=== PATIENT | female | born 1945 | race Caucasian/White ===

== ENCOUNTER 2016-10-07 10:26 | Inpatient (IN) | payer MEDICARE, OTHER ==
[2016-10-07] MEDS ORDERED: SODIUM CHLORIDE 1,000 ML IV STA (11:03)
[2016-10-07] MEDS ORDERED: methylPREDNISolone NA SUCC 125 MG/2 ML VIAL IVPB ONE (11:04)
[2016-10-07] MEDS ORDERED: ACETAMINOPHEN 325 MG TABLET (FP) PO ONE (11:05)
[2016-10-07] MEDS ORDERED: ALBUTEROL SO4 2.5/IPRATROPIUM 0.5 INH SOL 3 ML VIAL.NEB. NEB ONE ×2 (11:08→11:50)
[2016-10-07 11:11] LABS: BASOPHIL 0.4 % (0-2.0); EOSINOPHIL 0.5 % (0-4.5); MCH 28.9 pg (25.7-33.7); MCHC 32.3 g/dl (32.0-36.0); MEAN CELL VOLUME 89.3 fl (80-96); MEAN PLT VOLUME 8.9 fl (7.5-11.1); NEUTROPHILS 77.6 % (42.8-82.8); PLATELET COUNT 238 K/MM3 (134-434); RDW 14.7 % (11.6-15.6); WHITE BLOOD COUNT 8.2 K/mm3 (4.0-10.0)
--- NOTE | 2016-10-07 11:14 | PDOC ---
History of Present Illness <Michelle Woods - Last Filed: 10/07/16 12:20> - General History Source: Patient Exam Limitations: No Limitations - History of Present Illness Initial Comments: 10/07/16 11:08 71-year-old female presents to the ED with complaints of fever, chills, bodyaches, cough, wheezing, mid back pain, and intermittent diarrhea for the past 2 days. Patient states has been getting progressively worse including weakness and today on her way to the bathroom she states became dizzy and her knees buckled causing her to land on her buttocks. Patient states felt too weak to pull herself up so called her friend who called then EMS and brought her to the ER for further evaluation. Patient states was on the floor approximately 20 minutes until EMS came. Patient states did not hit her head have LOC or complaints of chest pain. Timing/Duration: reports: getting worse Severity: reports: moderate Possible Cause: Yes: no prior episodes Modifying Factors: improves with: albuterol inhaler Associated Symptoms: reports: cough, dizziness, fever/chills, muscle aches, wheezing <Shannon Harrison - Last Filed: 10/07/16 15:59> - General Chief Complaint: Diarrhea Stated Complaint: FALL Time Seen by Provider: 10/07/16 10:56 Past History <Michelle Woods - Last Filed: 10/07/16 12:20> - Past Medical History Asthma: Yes Cardiac Disorders: Yes Diabetes: Yes HTN: Yes Hypercholesterolemia: Yes - Surgical History Abdominal Surgery: Yes (tubal ligation) - Immunization History Immunization Up to Date: Yes - Psycho/Social/Smoking Cessation Hx Anxiety: No Suicidal Ideation: No Smoking Status: No Smoking History: Unknown if ever smoked Have you smoked in the past 12 months: No Number of Cigarettes Smoked Daily: 0 Hx Alcohol Use: No Drug/Substance Use Hx: No Substance Use Type: None Patient Lives Alone: No <Shannon Harrison - Last Filed: 10/07/16 15:59> - Past Medical History Allergies/Adverse Reactions: Allergies Allergy/AdvReac Type Severity Reaction Status Date / Time No Known Allergies Allergy Verified 04/07/16 15:07 Home Medications: Ambulatory Orders Calcium Carbonate/Vitamin D3 [Calcium 500-Vit D3 200 Caplet] 1 tab PO DAILY Montelukast Na [Singulair -] 10 mg PO HS 05/22/12 Pravastatin Sodium [Pravachol -] 20 mg PO HS 05/22/12 Docusate Sodium [Colace -] 300 mg PO DAILY PRN 12/02/12 Glimepiride [Amaryl -] 4 mg PO DAILY@0700 12/02/12 Amlodipine Besylate [Norvasc -] 10 mg PO DAILY #0 tablet 12/13/12 Metoprolol Succinate [Toprol XL -] 25 mg PO BID #0 tab.sr.24h 12/13/12 Aspirin [ASA -] 81 mg PO DAILY 01/25/16 Budesonide/Formeterol Fumarate [SYMBICORT 160/4.5mcg -] 3 inh PO BID 01/25/16 Furosemide [Lasix -] 20 mg PO DAILY 01/25/16 Bacitracin - [Bacitracin Topical Ointment -] 1 applic TP DAILY tube 01/28/16 Cephalexin Monohydrate [Keflex -] 500 mg PO BID #14 capsule 01/28/16 Enoxaparin [Lovenox -] 40 mg SQ DAILY disp.syrin 01/28/16 Gabapentin [Neurontin -] 100 mg PO TID capsule 01/28/16 Insulin Sliding Scale [Novolog Vial Sliding Scale -] 1 vial SQ ACHS units 01/27 Lisinopril [Prinivil] 5 mg PO DAILY tablet 01/28/16 Nystatin Cream [Mycostatin Cream -] 1 applic TP DAILY applic 01/28/16 Pantoprazole Sodium [Protonix -] 40 mg PO DAILY tablet.ec 01/28/16 Insulin (Levemir) [Levemir Vial] 10 units SQ HS ml 01/31/16 Insulin (Levemir) [Levemir Vial] 35 units SQ AM ml 01/31/16 Cyclobenzaprine HCl [Flexeril -] 10 mg PO TID #15 tablet 04/07/16 Respiratory Specific PMHX - Complaint Specific PMHX Angina: No <Shannon Harrison - Last Filed: 10/07/16 15:59> Review of Systems - Review of Systems Able to Perform ROS?: Yes Constitutional: Yes: Chills, Fever, Weakness HEENTM: No: Symptoms Reported Respiratory: Yes: Cough, Wheezing Cardiac (ROS): Yes: Lightheadedness ABD/GI: No: Symptoms Reported : No: Symptoms Reported Musculoskeletal: Yes: Back Pain (mid back) Integumentary: No: Symptoms Reported Neurological: Yes: Dizziness. No: Headache Hematologic/Lymphatic: No: Symptoms Reported <Shannon Harrison - Last Filed: 10/07/16 15:59> *Physical Exam - Vital Signs Last Vital Signs Temp Pulse Resp BP Pulse Ox 102.0 F H 124 H 25 H 146/84 100 10/07/16 11:18 10/07/16 11:18 10/07/16 11:18 10/07/16 10:41 10/07/16 11:18 <Michelle Woods - Last Filed: 10/07/16 12:20> - Vital Signs Last Vital Signs Temp Pulse Resp BP Pulse Ox 99.2 F 122 H 24 146/84 96 10/07/16 10:41 10/07/16 10:41 10/07/16 10:41 10/07/16 10:41 10/07/16 10:41 - Physical Exam General Appearance: Yes: Nourished, Appropriately Dressed. No: Apparent Distress HEENT: positive: EOMI, FRANCI, TMs Normal, Pharynx Normal. negative: Pale Conjunctivae Neck: positive: Supple Respiratory/Chest: positive: Wheezing (expiratory greater on right) Cardiovascular: positive: Regular Rhythm, Tachycardia. negative: Murmur Gastrointestinal/Abdominal: positive: Soft. negative: Tenderness Musculoskeletal: positive: Other (bilateral thoracic tenderness alond the parispinous muscles from t7-t12). negative: Vertebral Tenderness Extremity: positive: Normal Capillary Refill. negative: Pedal Edema Integumentary: positive: Normal Color, Warm, Moist Neurologic: positive: Motor Strength 5/5 (moving all extremeties actively) <Shannon Harrison - Last Filed: 10/07/16 15:59> ED Treatment Course - LABORATORY CBC & Chemistry Diagram: 10/07/16 11:00 10/07/16 11:00 - ADDITIONAL ORDERS Additional order review: Laboratory Results 10/07/16 10/07/16 10/07/16 11:00 11:00 11:00 INR 1.05 Sodium 143 Potassium 4.3 Chloride 103 Carbon Dioxide 31 Anion Gap 9 BUN 16 D Creatinine 1.1 H D Creat Clearance w eGFR 48.96 Random Glucose 279 H D Lactic Acid 1.5 Calcium 8.9 Total Bilirubin 0.3 AST 35 D ALT 29 D Alkaline Phosphatase 160 H D Creatine Kinase 592 H D CK-MB (CK-2) 2.385 Troponin I 0.02 Total Protein 7.3 Albumin 3.0 L Lipase 92 10/07/16 11:00 RBC 4.35 MCV 89.3 MCHC 32.3 RDW 14.7 MPV 8.9 Neutrophils % 77.6 D Lymphocytes % 12.1 D Monocytes % 9.4 Eosinophils % 0.5 Basophils % 0.4 - RADIOLOGY Radiology Studies Ordered: Category Date Time Status CHEST X-RAY PORTABLE* [RAD] Stat Radiology 10/07/16 11:00 Completed - Medications Given in the ED: ED Medications Discontinued Medications Generic Name Dose Route Start Last Admin Trade Name Dhaval PRN Reason Stop Dose Admin Acetaminophen 650 mg 10/07/16 11:05 10/07/16 11:25 Tylenol - PO 10/07/16 11:06 650 mg ONCE ONE Administration Albuterol/Ipratropium 1 amp 10/07/16 11:15 10/07/16 11:54 Duoneb - NEB 10/07/16 12:01 1 amp Q15M GERARDO Administration Sodium Chloride 1,000 mls @ 1,000 mls/hr 10/07/16 11:03 10/07/16 11:25 Normal Saline - IV 10/07/16 12:02 1,000 mls/hr ASDIR STA Administration Methylprednisolone Sodium Succinate 125 mg 10/07/16 11:04 10/07/16 11:32 Solu-Medrol - IVPB 10/07/16 11:05 125 mg ONCE ONE Administration <Michelle Woods - Last Filed: 10/07/16 12:20> - LABORATORY CBC & Chemistry Diagram: 10/07/16 11:00 10/07/16 11:00 <Shannon Harrison - Last Filed: 10/07/16 15:59> Medical Decision Making - Medical Decision Making 10/07/16 11:16 Patient with worsening symptoms of fever, chills, myalgia, weakness, cough and wheezing. Patient also states intermittent diarrhea but denies change in appetite. Patient concerning for sepsis secondary to warm to touch, oral temperature of 99.2, and tachycardia. Septic workup initiated along with DuoNeb and Solu-Medrol. 10/07/16 11:35 Rectal temp 102.0. Called placed to Dr. Mirza shortly 10/07/16 12:36 Laboratory Tests 10/07/16 10/07/16 10/07/16 11:00 11:00 11:00 WBC 8.2 Hgb 12.6 Hct 38.9 Neutrophils % 77.6 D INR 1.05 Sodium 143 Potassium 4.3 Chloride 103 Carbon Dioxide 31 Anion Gap 9 BUN 16 D Creatinine 1.1 H D Creat Clearance w eGFR 48.96 Random Glucose 279 H D Lactic Acid Calcium 8.9 Total Bilirubin 0.3 AST 35 D ALT 29 D Alkaline Phosphatase 160 H D Creatine Kinase 592 H D CK-MB (CK-2) 2.385 Troponin I 0.02 Lipase 92 10/07/16 11:00 WBC Hgb Hct Neutrophils % INR Sodium Potassium Chloride Carbon Dioxide Anion Gap BUN Creatinine Creat Clearance w eGFR Random Glucose Lactic Acid 1.5 Calcium Total Bilirubin AST ALT Alkaline Phosphatase Creatine Kinase CK-MB (CK-2) Troponin I Lipase Patient ordered for second IV fluid bolus of 500 mL after receiving the 1 L. Case discussed with Dr. Mirza patient's PCP and agrees patient should be admitted to [facility] with consultation to Dr. Walls. Urine specimen pending. Chest x-ray otherwise unremarkable. 10/07/16 13:58 Case discussed with patient's PCP again in regards to ordering antibiotics and states she will manage. <Shannon Harrison - Last Filed: 10/07/16 15:59> *DC/Admit/Observation/Transfer <Michelle Woods - Last Filed: 10/07/16 12:20> - Discharge Dispostion Admit: Yes <Shannon Harrison - Last Filed: 10/07/16 15:59> Diagnosis at time of Disposition: Elevated CK, Asthma exacerbation Sepsis Qualifiers: Sepsis type: sepsis due to unspecified organism Qualified Code(s): A41.9 - Sepsis, unspecified organism - Referrals - Patient Instructions
[2016-10-07] MEDS: ALBUTEROL SO4 2.5/IPRATROPIUM 0.5 INH SOL 3 ML VIAL.NEB. NEB SCH ×4 (11:19→12:28)
[2016-10-07] MEDS ORDERED: ACETAMINOPHEN 325 MG TABLET (FP) ONE (11:20)
[2016-10-07] MEDS ORDERED: methylPREDNISolone NA SUCC 125 MG/2 ML VIAL ONE (11:27)
[2016-10-07 11:37] LABS: BILIRUBIN,TOTAL 0.3 mg/dL (0.2-1.0); CALCIUM 8.9 mg/dL (8.5-10.1); COCKROFT - GAULT 66.3; CREATININE 1.1 mg/dL (0.55-1.02); TOT PROT 7.3 g/dl (6.4-8.2)
[2016-10-07 11:39] LABS: TROPONIN I 0.02 ng/ml (0.00-0.05)
[2016-10-07 11:44] LABS: INR 1.05 (0.82-1.09); PROTHROMBIN TIME (PATIENT) 11.6 SEC (9.98-11.88)
[2016-10-07] MEDS ORDERED: SODIUM CHLORIDE 500 ML IV STA (12:13)
--- NOTE | 2016-10-07 12:28 | PDOC ---
*Physical Exam - Vital Signs Last Vital Signs Temp Pulse Resp BP Pulse Ox 102.0 F H 124 H 25 H 146/84 100 10/07/16 11:18 10/07/16 11:18 10/07/16 11:18 10/07/16 10:41 10/07/16 11:18 ED Treatment Course - LABORATORY CBC & Chemistry Diagram: 10/07/16 11:00 10/07/16 11:00 - ADDITIONAL ORDERS Additional order review: Laboratory Results 10/07/16 10/07/16 10/07/16 11:00 11:00 11:00 INR 1.05 Sodium 143 Potassium 4.3 Chloride 103 Carbon Dioxide 31 Anion Gap 9 BUN 16 D Creatinine 1.1 H D Creat Clearance w eGFR 48.96 Random Glucose 279 H D Lactic Acid 1.5 Calcium 8.9 Total Bilirubin 0.3 AST 35 D ALT 29 D Alkaline Phosphatase 160 H D Creatine Kinase 592 H D CK-MB (CK-2) 2.385 Troponin I 0.02 Total Protein 7.3 Albumin 3.0 L Lipase 92 10/07/16 11:00 RBC 4.35 MCV 89.3 MCHC 32.3 RDW 14.7 MPV 8.9 Neutrophils % 77.6 D Lymphocytes % 12.1 D Monocytes % 9.4 Eosinophils % 0.5 Basophils % 0.4 - RADIOLOGY Radiology Studies Ordered: Category Date Time Status CHEST X-RAY PORTABLE* [RAD] Stat Radiology 10/07/16 11:00 Completed - Medications Given in the ED: ED Medications Discontinued Medications Generic Name Dose Route Start Last Admin Trade Name Freq PRN Reason Stop Dose Admin Acetaminophen 650 mg 10/07/16 11:05 10/07/16 11:25 Tylenol - PO 10/07/16 11:06 650 mg ONCE ONE Administration Albuterol/Ipratropium 1 amp 10/07/16 11:15 10/07/16 11:54 Duoneb - NEB 10/07/16 12:01 1 amp Q15M GERARDO Administration Sodium Chloride 1,000 mls @ 1,000 mls/hr 10/07/16 11:03 10/07/16 11:25 Normal Saline - IV 10/07/16 12:02 1,000 mls/hr ASDIR STA Administration Methylprednisolone Sodium Succinate 125 mg 10/07/16 11:04 10/07/16 11:32 Solu-Medrol - IVPB 10/07/16 11:05 125 mg ONCE ONE Administration Medical Decision Making - Medical Decision Making 10/07/16 12:26 71 yo F with h/o asthma, here with c/o shortness of breath cough wheezing and congestion, and loose stool x 2 - 3 days. today was weak and fell, was unable to get up due to weakness. states on floor for only half hour. no n/v has been using albuterol a lot more frequently the last few days. on exam awake, alert. wheezes bilaterally worse on the right, heart tachycardic , dry mucous membranes. abd soft NT . ext wwp. plan : differential: uti, sepsis, pna, bronchitis, dehydration, plan cxr labs ekg fever control iv hydration . admit pt seen and examined, d/w nikko Harrison and agree with plan *DC/Admit/Observation/Transfer - Referrals Referrals: Juan Pablo Perez MD [Primary Care Provider] - - Patient Instructions Print Language: SCOTTISH - Post Discharge Activity
[2016-10-07 13:30] LABS: URINE APPEARANCE CLEAR; URINE BILIRUBIN NEGATIVE (NEGATIVE); URINE BLOOD 1+ (NEGATIVE); URINE COLOR LTYELLOW; URINE GLUCOSE (UA) 3+ (NEGATIVE); URINE KETONE NEGATIVE (NEGATIVE); URINE LEUK ESTERASE NEGATIVE (NEGATIVE); URINE NITRITE NEGATIVE (NEGATIVE); URINE PROTEIN 2+ (NEGATIVE); URINE UROBILINOGEN NEGATIVE E.U./dl (0.2-1.0)
[2016-10-07 13:31] LABS: GRANULAR CASTS 18 /lpf; URINE HYALINE CAST 3 /lpf; URINE MUCUS RARE; URINE RBC 2 /hpf (0-3); URINE WBC <1 /hpf (3-5)
--- NOTE | 2016-10-07 14:53 | PN ---
Progress Note (short form) - Note Progress Note: ID consult dictated imp/reccd 71 year old female from home with four day history of cough, nasal congestion she has had one loose stool daily did not take her temp at home this am fell in the BR- got up, no head injury worsening myalgia and weakness no travel daughter with cold symptoms loose bm one daily, no blood for last two days no dysuria febrile to 102 and wheezing in ED treated with nebs and steroids/ivf cxray no infiltrate imp/reccd fever-bronchitis asthma exacerbation rhabdomyolysis diabetes influenza screen stool w/u ?viral would cover with rocephin Problem List - Problems (1) Fever Code(s): R50.9 - FEVER, UNSPECIFIED (2) Asthma exacerbation Code(s): J45.901 - UNSPECIFIED ASTHMA WITH (ACUTE) EXACERBATION (3) Elevated CK Code(s): R74.8 - ABNORMAL LEVELS OF OTHER SERUM ENZYMES (4) Diabetes mellitus Code(s): E11.9 - TYPE 2 DIABETES MELLITUS WITHOUT COMPLICATIONS Qualifiers: Diabetes mellitus type: type 2 Diabetes mellitus complication status: with neurologic complications Diabetes mellitus complication detail: with autonomic neuropathy Diabetes mellitus detention insulin use: with detention use Qualified Code(s): E11.43 - Type 2 diabetes mellitus with diabetic autonomic (poly)neuropathy; Z79.4 - nursing home (current) use of insulin
[2016-10-07 15:15] VITALS: BMI 31.6
--- NOTE | 2016-10-07 15:17 | EKG ---
Test Reason : Blood Pressure : / mmHG Vent. Rate : 119 BPM Atrial Rate : 119 BPM P-R Int : 162 ms QRS Dur : 076 ms QT Int : 332 ms P-R-T Axes : 042 020 032 degrees QTc Int : 467 ms SINUS TACHYCARDIA POSSIBLE LEFT ATRIAL ENLARGEMENT BORDERLINE ECG WHEN COMPARED WITH ECG OF 26-JAN-2016 09:19, NONSPECIFIC T WAVE ABNORMALITY NOW EVIDENT IN INFERIOR LEADS CLINICAL CORRELATION IS RECOMMENDED Confirmed by CATINA URIAS, RACHEL ([id number]) on 10/07/2016 3:16:58 PM Referred By: Confirmed By:RACHEL DOMINIQUE MD
--- NOTE | 2016-10-07 15:26 | HP ---
Admitting History and Physical - Primary Care Physician PCP: Cecy Roth - Admission Chief Complaint: fever, cough, malaise History of Present Illness: cough, chills, malaise progressing for past 4 days. loose stool, diarrhea once or twice. possibly took some abx, but unknown exactly what. fell today in bathroom. c/o pleuritic chest pain, cough with scant white phlegm. no nausea, no vomiting, throat scratchy. History Source: Patient Limitations to Obtaining History: Language Barrier, Poor Historian - Past Medical History CONVEYOR LOADER: Yes: Peripheral Neuropathy Cardiovascular: Yes: HTN, Other (DM) Pulmonary: Yes: Asthma ...: No Rheumatology: Yes: Fibromyalgia Endocrine: Yes: Diabetes Mellitus (poorly controlled, not very compliant with associated neuropathy) - Smoking History Smoking history: Never smoked Have you smoked in the past 12 months: No Aproximately how many cigarettes per day: 0 - Alcohol/Substance Use Hx Alcohol Use: No History of Substance Use: reports: None - Social History Usual Living Arrangement: Yes: With Child ADL: Family Assistance History of Recent Travel: No Home Medications - Allergies Allergies/Adverse Reactions: Allergies Allergy/AdvReac Type Severity Reaction Status Date / Time No Known Allergies Allergy Verified 04/07/16 15:07 - Home Medications Home Medications: Ambulatory Orders Calcium Carbonate/Vitamin D3 [Calcium 500-Vit D3 200 Caplet] 1 tab PO DAILY Montelukast Na [Singulair -] 10 mg PO HS 05/22/12 Pravastatin Sodium [Pravachol -] 20 mg PO HS 05/22/12 Docusate Sodium [Colace -] 300 mg PO DAILY PRN 12/02/12 Glimepiride [Amaryl -] 4 mg PO DAILY@0700 12/02/12 Amlodipine Besylate [Norvasc -] 10 mg PO DAILY #0 tablet 12/13/12 Metoprolol Succinate [Toprol XL -] 25 mg PO BID #0 tab.sr.24h 12/13/12 Aspirin [ASA -] 81 mg PO DAILY 01/25/16 Budesonide/Formeterol Fumarate [SYMBICORT 160/4.5mcg -] 3 inh PO BID 01/25/16 Furosemide [Lasix -] 20 mg PO DAILY 01/25/16 Bacitracin - [Bacitracin Topical Ointment -] 1 applic TP DAILY tube 01/28/16 Cephalexin Monohydrate [Keflex -] 500 mg PO BID #14 capsule 01/28/16 Enoxaparin [Lovenox -] 40 mg SQ DAILY disp.syrin 01/28/16 Gabapentin [Neurontin -] 100 mg PO TID capsule 01/28/16 Insulin Sliding Scale [Novolog Vial Sliding Scale -] 1 vial SQ ACHS units 01/27 Lisinopril [Prinivil] 5 mg PO DAILY tablet 01/28/16 Nystatin Cream [Mycostatin Cream -] 1 applic TP DAILY applic 01/28/16 Pantoprazole Sodium [Protonix -] 40 mg PO DAILY tablet.ec 01/28/16 Insulin (Levemir) [Levemir Vial] 10 units SQ HS ml 01/31/16 Insulin (Levemir) [Levemir Vial] 35 units SQ AM ml 01/31/16 Cyclobenzaprine HCl [Flexeril -] 10 mg PO TID #15 tablet 04/07/16 Family Disease History - Family Disease History Family History: Unable to Obtain Review of Systems - Review of Systems Constitutional: reports: Chills, Diaphoresis, Fever, Lethargy, Loss of Appetite , Weakness Cardiovascular: reports: No Symptoms Respiratory: reports: Cough, Wheezing Gastrointestinal: reports: Diarrhea (not significant). denies: Abdominal Pain, Bloating, Constipation Genitourinary: reports: No Symptoms Endocrine: reports: No Symptoms Hematology/Lymphatic: reports: No Symptoms Psychiatric: reports: No Symptoms Physical Examination Vital Signs: Vital Signs Temperature 99.8 F H 10/07/16 14:25 Pulse Rate 102 H 10/07/16 14:25 Respiratory Rate 24 10/07/16 14:25 Blood Pressure 124/60 10/07/16 14:25 O2 Sat by Pulse Oximetry (%) 91 L 10/07/16 14:25 Constitutional: Yes: Calm, Moderate Distress Eyes: Yes: Conjunctiva Clear HENT: Yes: Atraumatic, Normocephalic Neck: Yes: Trachea Midline Cardiovascular: Yes: Regular Rate and Rhythm Respiratory: Yes: Wheezes (bilateral diffuse) Gastrointestinal: Yes: Normal Bowel Sounds, Soft Musculoskeletal: Yes: WNL Extremities: Yes: WNL Edema: No Peripheral Pulses WNL: Yes Integumentary: Yes: WNL Neurological: Yes: WNL ...Motor Strength: WNL Psychiatric: Yes: WNL Labs: Laboratory Results - last 24 hr 10/07/16 10/07/16 10/07/16 11:00 11:00 11:00 WBC 8.2 RBC 4.35 Hgb 12.6 Hct 38.9 MCV 89.3 MCHC 32.3 RDW 14.7 Plt Count 238 MPV 8.9 Neutrophils % 77.6 D Lymphocytes % 12.1 D Monocytes % 9.4 Eosinophils % 0.5 Basophils % 0.4 INR 1.05 Sodium 143 Potassium 4.3 Chloride 103 Carbon Dioxide 31 Anion Gap 9 BUN 16 D Creatinine 1.1 H D Creat Clearance w eGFR 48.96 Random Glucose 279 H D Lactic Acid Calcium 8.9 Total Bilirubin 0.3 AST 35 D ALT 29 D Alkaline Phosphatase 160 H D Creatine Kinase 592 H D CK-MB (CK-2) 2.385 Troponin I 0.02 Total Protein 7.3 Albumin 3.0 L Lipase 92 Urine Color Urine Appearance Urine pH Urine Protein Urine Glucose (UA) Urine Ketones Urine Blood Urine Nitrite Urine Bilirubin Urine Urobilinogen Ur Leukocyte Esterase Urine RBC Urine WBC Ur Epithelial Cells Hyaline Casts Granular Casts Urine Mucus 10/07/16 10/07/16 11:00 13:15 WBC RBC Hgb Hct MCV MCHC RDW Plt Count MPV Neutrophils % Lymphocytes % Monocytes % Eosinophils % Basophils % INR Sodium Potassium Chloride Carbon Dioxide Anion Gap BUN Creatinine Creat Clearance w eGFR Random Glucose Lactic Acid 1.5 Calcium Total Bilirubin AST ALT Alkaline Phosphatase Creatine Kinase CK-MB (CK-2) Troponin I Total Protein Albumin Lipase Urine Color Ltyellow Urine Appearance Clear Urine pH 5.0 Urine Protein 2+ H Urine Glucose (UA) 3+ H Urine Ketones Negative Urine Blood 1+ H Urine Nitrite Negative Urine Bilirubin Negative Urine Urobilinogen Negative Ur Leukocyte Esterase Negative Urine RBC 2 Urine WBC <1 Ur Epithelial Cells Rare Hyaline Casts 3 Granular Casts 18 Urine Mucus Rare Imaging - Results Chest X-ray: Image Reviewed Problem List - Problems (1) Asthma exacerbation Code(s): J45.901 - UNSPECIFIED ASTHMA WITH (ACUTE) EXACERBATION (2) Elevated CK Code(s): R74.8 - ABNORMAL LEVELS OF OTHER SERUM ENZYMES (3) Diabetes mellitus Code(s): E11.9 - TYPE 2 DIABETES MELLITUS WITHOUT COMPLICATIONS Qualifiers: Diabetes mellitus type: type 2 Diabetes mellitus complication status: with neurologic complications Diabetes mellitus complication detail: with autonomic neuropathy Diabetes mellitus group home insulin use: with group home use Qualified Code(s): E11.43 - Type 2 diabetes mellitus with diabetic autonomic (poly)neuropathy; Z79.4 - senior care (current) use of insulin (4) Hyperlipidemia Code(s): E78.5 - HYPERLIPIDEMIA, UNSPECIFIED Qualifiers: Hyperlipidemia type: mixed hyperlipidemia Qualified Code(s): E78.2 - Mixed hyperlipidemia (5) Hypertension Code(s): I10 - ESSENTIAL (PRIMARY) HYPERTENSION Qualifiers: Hypertension type: essential hypertension Qualified Code(s): I10 - Essential (primary) hypertension (6) Fever Code(s): R50.9 - FEVER, UNSPECIFIED Assessment/Plan blood cultures drawn stool and flu swab requested unknown etiology, possibly viral mild rhabdo with recent fall iv abx iv fluids iv steroids nebulizers oxygne therapy repeat cardiac enzymes in evening sugar control
[2016-10-07] MEDS: cefTRIAXone 1 GM/50 ML BAG (PRE-DOCKED) IVPB SCH (15:35)
[2016-10-07] MEDS ORDERED: OXYCODONE/APAP 5/325MG COMBO TABLET PO PRN (15:42)
[2016-10-07] MEDS ORDERED: SODIUM CHLORIDE 0.45% 1,000 ML IV SCH (15:45)
[2016-10-07] MEDS ORDERED: oxyCODONE HCL 5 MG TABLET PO PRN (15:54)
[2016-10-07] MEDS ORDERED: ACETAMINOPHEN 325 MG TABLET (FP) PO PRN (15:54)
[2016-10-07] MEDS: SODIUM CHLORIDE 0.45% 1,000 ML IV SCH (16:22)
--- NOTE | 2016-10-07 16:28 | CONS ---
DATE OF CONSULTATION: DATE OF DICTATION: 10/07/2016 REQUESTED BY: Cecy Roth MD DICTATED BY: Vesna Vinson MD HISTORY OF PRESENT ILLNESS: This is a 71-year-old woman with a past medical history of asthma and diabetes, poorly controlled. She has had a 4-day history of cough and nasal congestion with progressive wheezing. She has had 1 loose stool daily for the last 2 days. She did not take her temperature at home as she has no thermometer. This morning, she felt weaker. She fell in the bathroom and got up. She has had worsening myalgia and weakness over the course of the last several days. There is no history of any travel. Her daughter has cold symptoms. There is no dysuria or abdominal pain. She has pain in her upper ribs when she coughs. She notes that she has nasal congestion. In the ER, she was noted to have fever to 102 and to be diffusely wheezing. She was given steroids and nebulizers as well as IV fluids. PAST MEDICAL HISTORY: Notable for asthma, coronary artery disease, diabetes, hypertension, hypercholesterolemia. SURGICAL HISTORY: Notable for tubal ligation. ALLERGIES: She has no known drug allergies. MEDICATIONS: Her medications list is not available from home. She does say that she was taking antibiotics or allergy medicine, which she bought at a pharmacy. The nature of this is not clear at this time. SOCIAL HISTORY: She lives with her daughter. There is no history of any cigarette or substance use. REVIEW OF SYSTEMS: As per HPI. PHYSICAL EXAM: Vital signs: Her T-max is 102. Current temperature is 99.8. Pulse is 96. Blood pressure is 138/64. Respiratory rate is 24. HEENT exam: She is normocephalic. Her eyes are anicteric. Her neck is supple. Her lungs have diffuse wheezing throughout. Cardiac: Her heart is regular rate and rhythm. Abdomen: Soft, nontender. Extremities: Without edema. LABS: Notable for a white count of 8.2, hemoglobin 12.6. Platelets are 238. BUN and creatinine are 16 and 1.1 with a glucose of 279. Alkaline phosphatase is 160. Lactic acid of 1.5 and a CK of 592. Urinalysis has less than 1 white cell. Blood cultures and urine cultures are pending. Chest x-ray is negative for infiltrate. SUMMARY: In summary, this is a 71-year-old woman with fever, asthma exacerbation, rhabdomyolysis and diabetes. RECOMMENDATION: I would suggest we continue fluids, influenza screen, do a stool workup. This very well could be viral, but given the fact that she is worsening over the last 4 days and has worsening myalgia, I would cover her with Rocephin at this time. Further recommendations to follow. I spoke with her primary care physician, Dr. Roth. VESNA VINSON M.D. [id number]
[2016-10-07] MEDS ORDERED: INSULIN (NOVOLOG) ASPART 100 UNITS/ML 10ML VIAL SQ SCH (16:30)
[2016-10-07] MEDS: INSULIN SLIDING SCALE (NOVOLOG) 1 VIAL SQ SCH ×2 (17:24→22:01)
[2016-10-07 17:26] LABS: TROPONIN I 0.03 ng/ml (0.00-0.05)
[2016-10-07] MEDS: ACETAMINOPHEN 325 MG TABLET (FP) PO PRN (21:22)
[2016-10-07] MEDS: methylPREDNISolone NA SUCC 40 MG/1 ML VIAL IVPB SCH (21:41)
[2016-10-07] MEDS: MONTELUKAST NA 10 MG TABLET PO SCH (21:44)
[2016-10-07] MEDS: METOPROLOL SUCCINATE 25 MG TAB.SR.24H (FP) PO SCH (21:44)
[2016-10-07] MEDS ORDERED: INSULIN (NOVOLOG) ASPART 100 UNITS/ML 10ML VIAL ONE (22:00)
[2016-10-07] MEDS ORDERED: INSULIN DETEMIR 100 UNITS/ML MDV SQ SCH (22:00)
[2016-10-08] MEDS: ALBUTEROL SO4 2.5/IPRATROPIUM 0.5 INH SOL 3 ML VIAL.NEB. NEB PRN ×2 (02:45→06:38)
[2016-10-08] MEDS: methylPREDNISolone NA SUCC 40 MG/1 ML VIAL IVPB SCH ×4 (04:06→21:10)
[2016-10-08] MEDS: INSULIN SLIDING SCALE (NOVOLOG) 1 VIAL SQ SCH ×4 (06:14→21:34)
[2016-10-08] MEDS ORDERED: guaiFENesin/D-M SUGAR-FREE/ACLHOL-FREE 118 ML BOTTLE PO PRN (07:20)
--- NOTE | 2016-10-08 07:20 | PN ---
Progress Note (short form) - Note Progress Note: Little better, still with lot of cough. Vital Signs Period Temp Pulse Resp BP Sys/Pinon Pulse Ox Last 24 Hr 99.2 F-102.0 F 102-124 24-25 124-146/60-84 91-100 S1S2 RRR Diffuse wheezing and rhonchi Abd soft NT tr edema aaox3 Imp Febrile illness Rhabdomyolysis IDDM HTN Plan iv fluids ceftriaxone f/up blood cultures stool cultures-however no BM since admission iv steroids bronchodilator O2 PT tomorrow Problem List - Problems (1) Asthma exacerbation Code(s): J45.901 - UNSPECIFIED ASTHMA WITH (ACUTE) EXACERBATION (2) Elevated CK Code(s): R74.8 - ABNORMAL LEVELS OF OTHER SERUM ENZYMES (3) Diabetes mellitus Code(s): E11.9 - TYPE 2 DIABETES MELLITUS WITHOUT COMPLICATIONS Qualifiers: Diabetes mellitus type: type 2 Diabetes mellitus complication status: with neurologic complications Diabetes mellitus complication detail: with autonomic neuropathy Diabetes mellitus technician terminal and repeater insulin use: with technician terminal and repeater use Qualified Code(s): E11.43 - Type 2 diabetes mellitus with diabetic autonomic (poly)neuropathy; Z79.4 - nursing home (current) use of insulin (4) Hyperlipidemia Code(s): E78.5 - HYPERLIPIDEMIA, UNSPECIFIED Qualifiers: Hyperlipidemia type: mixed hyperlipidemia Qualified Code(s): E78.2 - Mixed hyperlipidemia (5) Hypertension Code(s): I10 - ESSENTIAL (PRIMARY) HYPERTENSION Qualifiers: Hypertension type: essential hypertension Qualified Code(s): I10 - Essential (primary) hypertension (6) Fever Code(s): R50.9 - FEVER, UNSPECIFIED
[2016-10-08 07:48] LABS: BASOPHIL 0.1 % (0-2.0); MCH 29.7 pg (25.7-33.7); MCHC 33.2 g/dl (32.0-36.0); MEAN CELL VOLUME 89.3 fl (80-96); MEAN PLT VOLUME 9.1 fl (7.5-11.1); NEUTROPHILS 83.6 % (42.8-82.8); PLATELET COUNT 216 K/MM3 (134-434); WHITE BLOOD COUNT 9.6 K/mm3 (4.0-10.0)
[2016-10-08] MEDS: SODIUM CHLORIDE 0.45% 1,000 ML IV SCH ×2 (08:05→17:14)
[2016-10-08] MEDS: INSULIN DETEMIR 100 UNITS/ML MDV SQ SCH ×2 (08:06→17:10)
[2016-10-08 09:05] LABS: ALBUMIN 2.8 g/dl (3.4-5.0); BILIRUBIN,TOTAL 0.3 mg/dL (0.2-1.0); CALCIUM 8.6 mg/dL (8.5-10.1); COCKROFT - GAULT 61.8715; CREATININE 1.1 mg/dL (0.55-1.02); TOT PROT 6.8 g/dl (6.4-8.2)
[2016-10-08] MEDS: ASPIRIN 81 MG CHEWABLE TABLETS PO SCH (10:58)
[2016-10-08] MEDS: ENOXAPARIN NA (PORCINE) 40 MG/0.4 ML DISP.SYRIN SQ SCH (10:58)
[2016-10-08] MEDS: PANTOPRAZOLE 40 MG TABLET (FP) PO SCH (10:58)
[2016-10-08] MEDS: cefTRIAXone 1 GM/50 ML BAG (PRE-DOCKED) IVPB SCH (10:58)
[2016-10-08] MEDS: METOPROLOL SUCCINATE 25 MG TAB.SR.24H (FP) PO SCH ×2 (10:58→21:33)
[2016-10-08] MEDS: MONTELUKAST NA 10 MG TABLET PO SCH (21:33)
[2016-10-09] MEDS: methylPREDNISolone NA SUCC 40 MG/1 ML VIAL IVPB SCH ×4 (02:06→21:17)
[2016-10-09] MEDS: SODIUM CHLORIDE 0.45% 1,000 ML IV SCH ×2 (02:07→15:39)
[2016-10-09] MEDS: INSULIN DETEMIR 100 UNITS/ML MDV SQ SCH ×2 (06:19→17:05)
[2016-10-09] MEDS: INSULIN SLIDING SCALE (NOVOLOG) 1 VIAL SQ SCH ×4 (06:20→21:35)
[2016-10-09 08:27] LABS: BASOPHIL 0.1 % (0-2.0); MCHC 32.8 g/dl (32.0-36.0); MEAN CELL VOLUME 88.5 fl (80-96); MEAN PLT VOLUME 8.8 fl (7.5-11.1); NEUTROPHILS 85.9 % (42.8-82.8); PLATELET COUNT 246 K/MM3 (134-434); RDW 14.8 % (11.6-15.6)
[2016-10-09] MEDS: ALBUTEROL SO4 2.5/IPRATROPIUM 0.5 INH SOL 3 ML VIAL.NEB. NEB PRN (08:30)
[2016-10-09 08:53] LABS: ALBUMIN 2.7 g/dl (3.4-5.0); ANION GAP 10 (8-16); BILIRUBIN,TOTAL 0.2 mg/dL (0.2-1.0); CALCIUM 8.8 mg/dL (8.5-10.1); CO2 28 mmol/L (21-32); CREATININE 0.9 mg/dL (0.55-1.02); GLUCOSE,RANDOM 83 mg/dL (74-106); SGOT/AST 34 U/L (15-37); SGPT/ALT 26 U/L (12-78); TOT PROT 6.7 g/dl (6.4-8.2)
[2016-10-09 08:54] LABS: ALK PHOS 113 U/L (45-117)
--- NOTE | 2016-10-09 09:02 | PN ---
Progress Note (short form) - Note Progress Note: c/o cough and pleuritic chest pain CBC, BMP 10/09/16 07:15 10/09/16 07:15 Vital Signs Period Temp Pulse Resp BP Sys/Pinon Pulse Ox Last 24 Hr 97.8 F-98.5 F 85-96 18-19 128-184/63-99 95 S1S2 RRR Diffuse wheezing dry cough Abd soft NT no edema aaox3 Imp Febrile illness Asthmatic bronchitis Rhabdomyolysis due to cough and fall at home-of note pt was not on the floor was helped up almost immediately IDDM HTN Plan iv fluids ceftriaxone f/up blood cultures stool cultures-cancelled given no BM since admission iv steroids bronchodilator O2 PT eval pulm and rheum eval requested Problem List - Problems (1) Asthma exacerbation Code(s): J45.901 - UNSPECIFIED ASTHMA WITH (ACUTE) EXACERBATION (2) Elevated CK Code(s): R74.8 - ABNORMAL LEVELS OF OTHER SERUM ENZYMES (3) Diabetes mellitus Code(s): E11.9 - TYPE 2 DIABETES MELLITUS WITHOUT COMPLICATIONS Qualifiers: Diabetes mellitus type: type 2 Diabetes mellitus complication status: with neurologic complications Diabetes mellitus complication detail: with autonomic neuropathy Diabetes mellitus assistant terminal manager insulin use: with penitentiary use Qualified Code(s): E11.43 - Type 2 diabetes mellitus with diabetic autonomic (poly)neuropathy; Z79.4 - superintendent terminal (current) use of insulin (4) Hyperlipidemia Code(s): E78.5 - HYPERLIPIDEMIA, UNSPECIFIED Qualifiers: Hyperlipidemia type: mixed hyperlipidemia Qualified Code(s): E78.2 - Mixed hyperlipidemia (5) Hypertension Code(s): I10 - ESSENTIAL (PRIMARY) HYPERTENSION Qualifiers: Hypertension type: essential hypertension Qualified Code(s): I10 - Essential (primary) hypertension (6) Fever Code(s): R50.9 - FEVER, UNSPECIFIED
[2016-10-09 09:35] LABS: TROPONIN I 0.06 ng/ml (0.00-0.05)
[2016-10-09] MEDS ORDERED: PT OWN MED DRAWER 7, Y5N ONE (10:12)
[2016-10-09] MEDS: guaiFENesin/CODEINE 10 ML UNIT-DOSE CUPS PO PRN ×2 (10:40→21:37)
[2016-10-09] MEDS: ENOXAPARIN NA (PORCINE) 40 MG/0.4 ML DISP.SYRIN SQ SCH (10:40)
[2016-10-09] MEDS: PANTOPRAZOLE 40 MG TABLET (FP) PO SCH (10:40)
[2016-10-09] MEDS: LISINOPRIL 10 MG TABLET (FP) PO SCH ×2 (10:40→21:17)
[2016-10-09] MEDS: ASPIRIN 81 MG CHEWABLE TABLETS PO SCH (10:40)
[2016-10-09] MEDS: METOPROLOL SUCCINATE 25 MG TAB.SR.24H (FP) PO SCH ×2 (10:40→21:17)
[2016-10-09] MEDS: cefTRIAXone 1 GM/50 ML BAG (PRE-DOCKED) IVPB SCH (10:41)
--- NOTE | 2016-10-09 12:00 | PN ---
Progress Note (short form) - Note Progress Note: still with cough, myalgias resolved no fevers less wheezing, eating improved much less SOB diarrhea resolved Vital Signs Period Temp Pulse Resp BP Sys/Pinon Pulse Ox Last 24 Hr 97.8 F-98.5 F 85-94 18-20 142-194/70-99 95 cor-rrr llungs no wheeze abd soft,nt ext no edema CBC, BMP 10/09/16 07:15 10/09/16 07:15 imp/reccd fever asthma exacerbation rhabdomyolysis diabetes influenza screen- negative ?viral rocephin day #3 clinically improved
--- NOTE | 2016-10-09 13:23 | CON.PULM ---
Consult Consult Specialty:: PULM/CCM Referred by:: MARCELLO Reason for Consultation:: SOB - History of Present Illness Chief Complaint: SOB / left CP History of Present Illness: 71 F, with listed medical history. Questionable asthma history. Apparent life long non-smoker. Never intubated, never steroid dependent, unknown PEF. Occasional use of MDI. 4 to 5 days of URI / viral type symptoms. (+) Myalgias and weakness. No night sweats or hemoptysis. No travel history or sick contacts. Apparent mechanical fall at home. 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 Cardio/Vascular: Yes: HTN, Other (DM) Pulmonary: Yes: Asthma ...: No Rheumatology: Yes: Fibromyalgia Endocrine: Yes: Diabetes Mellitus (poorly controlled, not very compliant with associated neuropathy) - Alcohol/Substance Use Hx Alcohol Use: No History of Substance Use: reports: None - Smoking History Smoking history: Unknown if ever smoked Have you smoked in the past 12 months: No Aproximately how many cigarettes per day: 0 - Social History ADL: Family Assistance History of Recent Travel: No Home Medications - Allergies Allergies/Adverse Reactions: Allergies Allergy/AdvReac Type Severity Reaction Status Date / Time No Known Allergies Allergy Verified 04/07/16 15:07 - Home Medications Home Medications: Ambulatory Orders Calcium Carbonate/Vitamin D3 [Calcium 500-Vit D3 200 Caplet] 1 tab PO DAILY Montelukast Na [Singulair -] 10 mg PO HS 05/22/12 Pravastatin Sodium [Pravachol -] 20 mg PO HS 05/22/12 Docusate Sodium [Colace -] 300 mg PO DAILY PRN 12/02/12 Glimepiride [Amaryl -] 4 mg PO DAILY@0700 12/02/12 Amlodipine Besylate [Norvasc -] 10 mg PO DAILY #0 tablet 12/13/12 Metoprolol Succinate [Toprol XL -] 25 mg PO BID #0 tab.sr.24h 12/13/12 Aspirin [ASA -] 81 mg PO DAILY 01/25/16 Budesonide/Formeterol Fumarate [SYMBICORT 160/4.5mcg -] 3 inh PO BID 01/25/16 Furosemide [Lasix -] 20 mg PO DAILY 01/25/16 Bacitracin - [Bacitracin Topical Ointment -] 1 applic TP DAILY tube 01/28/16 Cephalexin Monohydrate [Keflex -] 500 mg PO BID #14 capsule 01/28/16 Enoxaparin [Lovenox -] 40 mg SQ DAILY disp.syrin 01/28/16 Gabapentin [Neurontin -] 100 mg PO TID capsule 01/28/16 Insulin Sliding Scale [Novolog Vial Sliding Scale -] 1 vial SQ ACHS units 01/27 Lisinopril [Prinivil] 5 mg PO DAILY tablet 01/28/16 Nystatin Cream [Mycostatin Cream -] 1 applic TP DAILY applic 01/28/16 Pantoprazole Sodium [Protonix -] 40 mg PO DAILY tablet.ec 01/28/16 Insulin (Levemir) [Levemir Vial] 10 units SQ HS ml 01/31/16 Insulin (Levemir) [Levemir Vial] 35 units SQ AM ml 01/31/16 Cyclobenzaprine HCl [Flexeril -] 10 mg PO TID #15 tablet 04/07/16 Review of Systems - Review of Systems Constitutional: reports: Fever, Lethargy, Malaise, Weakness. denies: Chills, Night Sweats, Unintentional Wgt. Loss Eyes: reports: No Symptoms HENT: reports: Nasal Congestion, Throat Pain. denies: Gingival Bleeding, Hearing Loss, Toothache, Ringing in Ears Neck: reports: No Symptoms Cardiovascular: reports: Chest Pain, Shortness of Breath. denies: Edema, Palpitations Respiratory: reports: Cough, SOB, SOB on Exertion, Wheezing. denies: Hemoptysis Gastrointestinal: reports: No Symptoms Genitourinary: reports: No Symptoms Breasts: reports: No Symptoms Reported Musculoskeletal: reports: Other (Chest pain) Integumentary: reports: No Symptoms Neurological: reports: No Symptoms Endocrine: reports: No Symptoms Hematology/Lymphatic: reports: No Symptoms Psychiatric: reports: No Symptoms Physical Exam Vital Sings: Vital Signs Temperature 97.9 F 10/09/16 09:27 Pulse Rate 89 10/09/16 09:27 Respiratory Rate 20 10/09/16 10:00 Blood Pressure 194/98 10/09/16 09:27 O2 Sat by Pulse Oximetry (%) 93 L 10/09/16 10:00 Constitutional: Yes: No Distress Eyes: Yes: Conjunctiva Clear, EOM Intact HENT: Yes: Atraumatic, Normocephalic Neck: Yes: Supple, Trachea Midline Cardiovascular: Yes: Regular Rate and Rhythm Respiratory: Yes: Cough, Diminished, On Nasal O2, Rhonchi, Wheezes. No: Accessory Muscle Use, Rales, Stridor, Tachypnea ...Inspection: Yes: WNL ...Clubbing: No Gastrointestinal: Yes: WNL, Normal Bowel Sounds, Soft, Abdomen, Obese Renal/: Yes: WNL Musculoskeletal: Yes: WNL Extremities: Yes: WNL Edema: No Peripheral Pulses WNL: Yes Integumentary: Yes: WNL Neurological: Yes: WNL, Alert, Oriented ...Motor Strength: WNL Psychiatric: Yes: WNL, Alert, Oriented Labs: CBC, BMP 10/09/16 07:15 10/09/16 07:15 Imaging - Results Chest X-ray: Report Reviewed, Image Reviewed Problem List - Problems (1) Asthma exacerbation Code(s): J45.901 - UNSPECIFIED ASTHMA WITH (ACUTE) EXACERBATION (2) Cervical myofascial strain Code(s): S16.1XXA - STRAIN OF MUSCLE, FASCIA AND TENDON AT NECK LEVEL, INIT Qualifiers: Encounter type: initial encounter Qualified Code(s): S16.1XXA - Strain of muscle, fascia and tendon at neck level, initial encounter (3) Chest pain Code(s): R07.9 - CHEST PAIN, UNSPECIFIED Qualifiers: Chest pain type: precordial chest pain Qualified Code(s): R07.2 - Precordial pain (4) Diabetes mellitus Code(s): E11.9 - TYPE 2 DIABETES MELLITUS WITHOUT COMPLICATIONS Qualifiers: Diabetes mellitus type: type 2 Diabetes mellitus complication status: with neurologic complications Diabetes mellitus complication detail: with autonomic neuropathy Diabetes mellitus mcc insulin use: with mcc use Qualified Code(s): E11.43 - Type 2 diabetes mellitus with diabetic autonomic (poly)neuropathy; Z79.4 - ferry terminal supervisor (current) use of insulin (5) Hyperlipidemia Code(s): E78.5 - HYPERLIPIDEMIA, UNSPECIFIED Qualifiers: Hyperlipidemia type: mixed hyperlipidemia Qualified Code(s): E78.2 - Mixed hyperlipidemia (6) Hypertension Code(s): I10 - ESSENTIAL (PRIMARY) HYPERTENSION Qualifiers: Hypertension type: essential hypertension Qualified Code(s): I10 - Essential (primary) hypertension Assessment/Plan Medrol BD TX O2 as needed ABX per ID VTE prophylaxis Local pain control -> I suspect MS due to fall Outpatient PFTs once stable Will follow Thank you. Dr Palma
[2016-10-09] MEDS: ALBUTEROL SO4 0.083% IH SOL 2.5 MG/3 ML VIAL.NEB. NEB SCH ×2 (14:10→22:40)
--- NOTE | 2016-10-09 14:44 | CONSULT ---
Consult Consult Specialty:: Rheumatology - History of Present Illness History of Present Illness: 71 year old femaled with history of diabetes mellitus type II ( 25 year history ), diabetic retinopathy, hypertension, hypercholesterolemia, and asthma (since childhood, previous acute attack 5 years ago), admitted with productive cough, shortness of breath, weakness and was found to have elevated CPK. HPI. The patient reports having weakness mainly in lower limbs for the last few months. She had difficulty in walking and denies having other limitation in her activities. Two weeks ago the patient developed dizziness, she had 4 falls, and wheezing with shortness of breath. 4 days later she developed productive cough, retrosternal chest pain when coughing and not-quantified fever. She had diarrhea for 2 days an denies abdominal pain. The patient denies joint pain, skin rash or red eyes. On admission Osmel was 102 and since yesterday she has not have fever. On admission WBC 8.2, on 10/07 CK was 592 and today (10/09) 628, AST and ALT normal. UA with protein 2+, blood 1+, glucose 3+. hyaline casts 3 and granular casts 18. The patient was started today on Solumedrol 40 mg IV BID (to be increased to 60 mg QID). 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 Cardio/Vascular: Yes: HTN, Other (DM) Pulmonary: Yes: Asthma ...: No Rheumatology: Yes: Fibromyalgia Endocrine: Yes: Diabetes Mellitus (poorly controlled, not very compliant with associated neuropathy) - Alcohol/Substance Use Hx Alcohol Use: No History of Substance Use: reports: None - Smoking History Smoking history: Unknown if ever smoked Have you smoked in the past 12 months: No Aproximately how many cigarettes per day: 0 - Social History ADL: Family Assistance History of Recent Travel: No Home Medications - Allergies Allergies/Adverse Reactions: Allergies Allergy/AdvReac Type Severity Reaction Status Date / Time No Known Allergies Allergy Verified 04/07/16 15:07 - Home Medications Home Medications: Ambulatory Orders Calcium Carbonate/Vitamin D3 [Calcium 500-Vit D3 200 Caplet] 1 tab PO DAILY Montelukast Na [Singulair -] 10 mg PO HS 05/22/12 Pravastatin Sodium [Pravachol -] 20 mg PO HS 05/22/12 Docusate Sodium [Colace -] 300 mg PO DAILY PRN 12/02/12 Glimepiride [Amaryl -] 4 mg PO DAILY@0700 12/02/12 Amlodipine Besylate [Norvasc -] 10 mg PO DAILY #0 tablet 12/13/12 Metoprolol Succinate [Toprol XL -] 25 mg PO BID #0 tab.sr.24h 12/13/12 Aspirin [ASA -] 81 mg PO DAILY 01/25/16 Budesonide/Formeterol Fumarate [SYMBICORT 160/4.5mcg -] 3 inh PO BID 01/25/16 Furosemide [Lasix -] 20 mg PO DAILY 01/25/16 Bacitracin - [Bacitracin Topical Ointment -] 1 applic TP DAILY tube 01/28/16 Cephalexin Monohydrate [Keflex -] 500 mg PO BID #14 capsule 01/28/16 Enoxaparin [Lovenox -] 40 mg SQ DAILY disp.syrin 01/28/16 Gabapentin [Neurontin -] 100 mg PO TID capsule 01/28/16 Insulin Sliding Scale [Novolog Vial Sliding Scale -] 1 vial SQ ACHS units 01/27 Lisinopril [Prinivil] 5 mg PO DAILY tablet 01/28/16 Nystatin Cream [Mycostatin Cream -] 1 applic TP DAILY applic 01/28/16 Pantoprazole Sodium [Protonix -] 40 mg PO DAILY tablet.ec 01/28/16 Insulin (Levemir) [Levemir Vial] 10 units SQ HS ml 01/31/16 Insulin (Levemir) [Levemir Vial] 35 units SQ AM ml 01/31/16 Cyclobenzaprine HCl [Flexeril -] 10 mg PO TID #15 tablet 04/07/16 Review of Systems - Review of Systems Constitutional: reports: Malaise Eyes: reports: Recent Change in Vision HENT: reports: No Symptoms Neck: reports: No Symptoms Cardiovascular: reports: No Symptoms Respiratory: reports: SOB, Other (Retrosternal chest pain with coughing.) Gastrointestinal: reports: Diarrhea Genitourinary: reports: No Symptoms Musculoskeletal: reports: Other Physical Exam Vital Signs: Vital Signs Temperature 97.9 F 10/09/16 09:27 Pulse Rate 89 10/09/16 09:27 Respiratory Rate 20 10/09/16 10:00 Blood Pressure 194/98 10/09/16 09:27 O2 Sat by Pulse Oximetry (%) 93 L 10/09/16 10:00 Constitutional: Yes: Mild Distress Eyes: Yes: WNL HENT: Yes: WNL Neck: Yes: WNL Cardiovascular: Yes: WNL Respiratory: Yes: Other (Prolongued expiration, mild wheezing) Musculoskeletal: Yes: Other (No active joints. Muscle strength 4-5 / 5) Labs: CBC, BMP 10/09/16 07:15 10/09/16 07:15 Laboratory Tests 10/07/16 10/07/16 10/07/16 11:00 13:15 16:20 AST ALT Alkaline Phosphatase Creatine Kinase 592 H D 449 H D Albumin Urine Color Ltyellow Urine Appearance Clear Urine pH 5.0 Ur Specific Stanton 1.020 Urine Protein 2+ H Urine Glucose (UA) 3+ H Urine Ketones Negative Urine Blood 1+ H Urine Nitrite Negative Urine Bilirubin Negative Urine Urobilinogen Negative Ur Leukocyte Esterase Negative Urine RBC 2 Urine WBC <1 Ur Epithelial Cells Rare Hyaline Casts 3 Granular Casts 18 10/08/16 10/09/16 06:00 07:15 AST 34 D ALT 26 Alkaline Phosphatase 113 Creatine Kinase 589 H D 628 H Albumin 2.7 L Urine Color Urine Appearance Urine pH Ur Specific Stanton Urine Protein Urine Glucose (UA) Urine Ketones Urine Blood Urine Nitrite Urine Bilirubin Urine Urobilinogen Ur Leukocyte Esterase Urine RBC Urine WBC Ur Epithelial Cells Hyaline Casts Granular Casts Problem List - Problems (1) Elevated CK Assessment/Plan: Since admission there has been no improvement in CPK (CPK increased from 592 to 628),. It is no clear if the patient is weak or if she has deconditioning weakness. AST and ALT were normal. Apparently the patient was been treated with a statin as outpatient. In summary, Probably the patient has chronic elevation of CPK, possibly aggravated by Statins and it has no effect in muscle strength. I cannot rule out mild Rhabdo, however it is less likely. She was strated on Solumedrol for asthma. I suggest to follow up CPKs. Code(s): R74.8 - ABNORMAL LEVELS OF OTHER SERUM ENZYMES
[2016-10-09] MEDS: MONTELUKAST NA 10 MG TABLET PO SCH (21:17)
[2016-10-10] MEDS: guaiFENesin/CODEINE 10 ML UNIT-DOSE CUPS PO PRN (04:54)
[2016-10-10] MEDS: SODIUM CHLORIDE 0.45% 1,000 ML IV SCH ×2 (04:57→20:44)
[2016-10-10] MEDS: INSULIN SLIDING SCALE (NOVOLOG) 1 VIAL SQ SCH ×4 (06:18→22:15)
[2016-10-10] MEDS: ALBUTEROL SO4 0.083% IH SOL 2.5 MG/3 ML VIAL.NEB. NEB SCH ×2 (06:25→14:15)
[2016-10-10] MEDS: INSULIN DETEMIR 100 UNITS/ML MDV SQ SCH ×2 (06:41→17:36)
[2016-10-10] MEDS ORDERED: INSULIN DETEMIR 100 UNITS/ML MDV SQ ONE ×2 (06:48→19:56)
[2016-10-10 08:27] LABS: TROPONIN I 0.08 ng/ml (0.00-0.05)
[2016-10-10] MEDS: METOPROLOL SUCCINATE 25 MG TAB.SR.24H (FP) PO SCH ×2 (09:08→22:16)
[2016-10-10] MEDS: LISINOPRIL 10 MG TABLET (FP) PO SCH ×2 (09:08→22:16)
[2016-10-10] MEDS: PANTOPRAZOLE 40 MG TABLET (FP) PO SCH (09:09)
[2016-10-10] MEDS: ENOXAPARIN NA (PORCINE) 40 MG/0.4 ML DISP.SYRIN SQ SCH (09:09)
[2016-10-10] MEDS: ASPIRIN 81 MG CHEWABLE TABLETS PO SCH (09:09)
[2016-10-10] MEDS: ACETAMINOPHEN 325 MG TABLET (FP) PO PRN (09:10)
[2016-10-10] MEDS: cefTRIAXone 1 GM/50 ML BAG (PRE-DOCKED) IVPB SCH (09:10)
--- NOTE | 2016-10-10 10:20 | PN ---
Progress Note (short form) - Note Progress Note: c/o cough and pleuritic chest pain with white phlegm. fell on her left knee while coming out of the bathroom overnight-unwitnessed, was able to get up and get back to bed. intermittent headache and weakness present. CPK 1300 lactic acid 2.2 today CBC, BMP 10/09/16 07:15 10/09/16 07:15 LFTs wnl Vital Signs Period Temp Pulse Resp BP Sys/Pinon Pulse Ox Last 24 Hr 97.5 F-98.1 F 81-92 15-20 144-164/71-92 98 S1S2 RRR Diffuse wheezing dry cough-improved from yesterday Abd soft NT no edema small abrasion on left knee, no swelling, no tenderness, irom aaox3 Imp Clinically looks improved and is not toxic Febrile illness Asthmatic bronchitis Rhabdomyolysis? Myopathy? IDDM HTN Plan iv fluids ceftriaxone iv steroids bronchodilator O2 PT eval add amlodipine for BP consults appreciated Problem List - Problems (1) Asthma exacerbation Code(s): J45.901 - UNSPECIFIED ASTHMA WITH (ACUTE) EXACERBATION (2) Elevated CK Code(s): R74.8 - ABNORMAL LEVELS OF OTHER SERUM ENZYMES (3) Diabetes mellitus Code(s): E11.9 - TYPE 2 DIABETES MELLITUS WITHOUT COMPLICATIONS Qualifiers: Diabetes mellitus type: type 2 Diabetes mellitus complication status: with neurologic complications Diabetes mellitus complication detail: with autonomic neuropathy Diabetes mellitus tank terminal gauger insulin use: with long-term use Qualified Code(s): E11.43 - Type 2 diabetes mellitus with diabetic autonomic (poly)neuropathy; Z79.4 - intermediate card tender (current) use of insulin (4) Hyperlipidemia Code(s): E78.5 - HYPERLIPIDEMIA, UNSPECIFIED Qualifiers: Hyperlipidemia type: mixed hyperlipidemia Qualified Code(s): E78.2 - Mixed hyperlipidemia (5) Hypertension Code(s): I10 - ESSENTIAL (PRIMARY) HYPERTENSION Qualifiers: Hypertension type: essential hypertension Qualified Code(s): I10 - Essential (primary) hypertension (6) Fever Code(s): R50.9 - FEVER, UNSPECIFIED
[2016-10-10] MEDS: methylPREDNISolone NA SUCC 40 MG/1 ML VIAL IVPB SCH ×2 (10:59→22:16)
[2016-10-10] MEDS: amLODIPine BESYLATE 10 MG TABLET (FP) PO SCH (11:13)
[2016-10-10] MEDS ORDERED: INSULIN (NOVOLOG) ASPART 100 UNITS/ML 10ML VIAL ONE (11:44)
[2016-10-10] MEDS ORDERED: IPRATROPIUM BR 0.02% 0.5 MG/2.5 ML VIAL.NEB. NEB PRN (16:23)
--- NOTE | 2016-10-10 16:23 | PN ---
Progress Note (short form) - Note Progress Note: Noted that she had a mechanical fall last night. Hit her head on the left and her left knee. (+) Hematoma noted. Breathing is better. Comfortable off O2. Daughter at bedside for translation. Cecilia does report some diffuse but non- specific muscle discomfort that began prior to her hospitalization. Intake & Output 10/07/16 10/08/16 10/09/16 10/10/16 23:59 23:59 23:59 23:59 Intake Total 1050 1875 3635 1450 Output Total 600 Balance 1050 1875 3635 850 Weight 184 lb 3.2 oz Last Vital Signs Temp Pulse Resp BP Pulse Ox 98.3 F 95 H 20 159/96 97 10/10/16 14:54 10/10/16 14:54 10/10/16 14:54 10/10/16 14:54 10/10/16 09:00 Active Medications Acetaminophen (Tylenol -) 650 mg PO Q6H PRN PRN Reason: FEVER OR PAIN Last Admin: 10/10/16 09:10 Dose: 650 mg Acetaminophen (Tylenol -) 325 mg PO Q6H PRN PRN Reason: PAIN Albuterol Sulfate (Ventolin 0.083% Nebulizer Soln -) 1 amp NEB TID [facility] Last Admin: 10/10/16 14:15 Dose: 1 amp Albuterol/Ipratropium (Duoneb -) 1 amp NEB Q4H PRN PRN Reason: SHORTNESS OF BREATH Last Admin: 10/09/16 08:30 Dose: 1 amp Amlodipine Besylate (Norvasc -) 10 mg PO DAILY [facility] Last Admin: 10/10/16 11:13 Dose: 10 mg Aspirin (Asa -) 81 mg PO DAILY [facility] Last Admin: 10/10/16 09:09 Dose: 81 mg Ceftriaxone Sodium (Rocephin 1gm Ivpb (Pre-Docked)) 1 gm IVPB DAILY [facility] PRN Reason: Protocol Last Admin: 10/10/16 09:10 Dose: 1 gm Enoxaparin Sodium (Lovenox -) 40 mg SQ DAILY [facility] Last Admin: 10/10/16 09:09 Dose: 40 mg Guaifenesin/Codeine Phosphate (Robitussin Ac -) 10 ml PO Q8H PRN PRN Reason: COUGH Last Admin: 10/10/16 04:54 Dose: 10 ml Sodium Chloride (1/2 Normal Saline) 1,000 mls @ 75 mls/hr IV ASDIR [facility] Last Admin: 10/10/16 04:57 Dose: 75 mls/hr Insulin Aspart (Novolog Vial Sliding Scale -) 1 vial SQ ACHS [facility] PRN Reason: Protocol Last Admin: 10/10/16 11:45 Dose: 4 units Insulin Detemir (Levemir Vial) 50 units SQ BIDI [facility] Lisinopril (Prinivil) 10 mg PO BID [facility] Last Admin: 10/10/16 09:08 Dose: 10 mg Methylprednisolone Sodium Succinate (Solu-Medrol -) 40 mg IVPB BID [facility] Last Admin: 10/10/16 10:59 Dose: 40 mg Metoprolol Succinate (Toprol Xl -) 25 mg PO BID [facility] Last Admin: 10/10/16 09:08 Dose: 25 mg Montelukast Sodium (Singulair -) 10 mg PO HS [facility] Last Admin: 10/09/16 21:17 Dose: 10 mg Oxycodone HCl (Roxicodone -) 5 mg PO Q6H PRN PRN Reason: PAIN Pantoprazole Sodium (Protonix -) 40 mg PO DAILY [facility] Last Admin: 10/10/16 09:09 Dose: 40 mg Constitutional: Yes: No Distress Eyes: Yes: Conjunctiva Clear, EOM Intact HENT: Yes: small left temporal hematoma Neck: Yes: Supple, Trachea Midline Cardiovascular: Yes: Regular Rate and Rhythm Respiratory: Yes: Cough, Diminished, On Nasal O2, Rhonchi, No: Accessory Muscle Use, Rales, Stridor, Wheezes ...Inspection: Yes: WNL ...Clubbing: No Gastrointestinal: Yes: WNL, Normal Bowel Sounds, Soft, Abdomen, Obese Renal/: Yes: WNL Musculoskeletal: Yes: WNL Extremities: Yes: WNL Edema: No Peripheral Pulses WNL: Yes Integumentary: Yes: WNL Neurological: Yes: WNL, Alert, Oriented ...Motor Strength: WNL Psychiatric: Yes: WNL, Alert, Oriented Labs: Laboratory Results - last 24 hr 10/09/16 10/09/16 10/10/16 16:58 21:27 06:17 POC Glucometer 365 379 208 Lactic Acid Creatine Kinase CK-MB (CK-2) Troponin I 10/10/16 10/10/16 10/10/16 06:20 06:20 11:43 POC Glucometer 196 Lactic Acid 2.2 H* Creatine Kinase 1312 H D CK-MB (CK-2) 15.831 H Troponin I 0.08 H Problem List - Problems (1) Asthma exacerbation Code(s): J45.901 - UNSPECIFIED ASTHMA WITH (ACUTE) EXACERBATION (2) Cervical myofascial strain Code(s): S16.1XXA - STRAIN OF MUSCLE, FASCIA AND TENDON AT NECK LEVEL, INIT Qualifiers: Encounter type: initial encounter Qualified Code(s): S16.1XXA - Strain of muscle, fascia and tendon at neck level, initial encounter (3) Chest pain Code(s): R07.9 - CHEST PAIN, UNSPECIFIED Qualifiers: Chest pain type: precordial chest pain Qualified Code(s): R07.2 - Precordial pain (4) Diabetes mellitus Code(s): E11.9 - TYPE 2 DIABETES MELLITUS WITHOUT COMPLICATIONS Qualifiers: Diabetes mellitus type: type 2 Diabetes mellitus complication status: with neurologic complications Diabetes mellitus complication detail: with autonomic neuropathy Diabetes mellitus alf insulin use: with petroleum terminal plant operator use Qualified Code(s): E11.43 - Type 2 diabetes mellitus with diabetic autonomic (poly)neuropathy; Z79.4 - termite control representative (current) use of insulin (5) Hyperlipidemia Code(s): E78.5 - HYPERLIPIDEMIA, UNSPECIFIED Qualifiers: Hyperlipidemia type: mixed hyperlipidemia Qualified Code(s): E78.2 - Mixed hyperlipidemia (6) Hypertension Code(s): I10 - ESSENTIAL (PRIMARY) HYPERTENSION Qualifiers: Hypertension type: essential hypertension Qualified Code(s): I10 - Essential (primary) hypertension Assessment/Plan Medrol Change BD TX to PRN -> Can sometimes see a type B lactic acidosis O2 as needed ABX per ID VTE prophylaxis Local pain control Fall precautions Outpatient PFTs once stable Check Lactic acid/CPK in the AM Dr Palma Problem List - Problems (1) Asthma exacerbation Code(s): J45.901 - UNSPECIFIED ASTHMA WITH (ACUTE) EXACERBATION (2) Cervical myofascial strain Code(s): S16.1XXA - STRAIN OF MUSCLE, FASCIA AND TENDON AT NECK LEVEL, INIT Qualifiers: Encounter type: initial encounter Qualified Code(s): S16.1XXA - Strain of muscle, fascia and tendon at neck level, initial encounter (3) Chest pain Code(s): R07.9 - CHEST PAIN, UNSPECIFIED Qualifiers: Chest pain type: precordial chest pain Qualified Code(s): R07.2 - Precordial pain (4) Diabetes mellitus Code(s): E11.9 - TYPE 2 DIABETES MELLITUS WITHOUT COMPLICATIONS Qualifiers: Diabetes mellitus type: type 2 Diabetes mellitus complication status: with neurologic complications Diabetes mellitus complication detail: with autonomic neuropathy Diabetes mellitus petroleum terminal plant operator insulin use: with petroleum terminal plant operator use Qualified Code(s): E11.43 - Type 2 diabetes mellitus with diabetic autonomic (poly)neuropathy; Z79.4 - [facility] (current) use of insulin (5) Hyperlipidemia Code(s): E78.5 - HYPERLIPIDEMIA, UNSPECIFIED Qualifiers: Hyperlipidemia type: mixed hyperlipidemia Qualified Code(s): E78.2 - Mixed hyperlipidemia (6) Hypertension Code(s): I10 - ESSENTIAL (PRIMARY) HYPERTENSION Qualifiers: Hypertension type: essential hypertension Qualified Code(s): I10 - Essential (primary) hypertension
[2016-10-10] MEDS: MONTELUKAST NA 10 MG TABLET PO SCH (22:16)
[2016-10-11] MEDS: INSULIN SLIDING SCALE (NOVOLOG) 1 VIAL SQ SCH ×4 (06:43→21:39)
[2016-10-11] MEDS: INSULIN DETEMIR 100 UNITS/ML MDV SQ SCH (07:56)
[2016-10-11 09:04] LABS: ALBUMIN 2.5 g/dl (3.4-5.0); ALK PHOS 97 U/L (45-117); ANION GAP 7 (8-16); BILIRUBIN,TOTAL 0.2 mg/dL (0.2-1.0); CALCIUM 8.1 mg/dL (8.5-10.1); CO2 30 mmol/L (21-32); CREATININE 0.8 mg/dL (0.55-1.02); GLUCOSE,RANDOM 104 mg/dL (74-106); SGOT/AST 41 U/L (15-37); SGPT/ALT 31 U/L (12-78); TOT PROT 5.9 g/dl (6.4-8.2)
--- NOTE | 2016-10-11 09:23 | PN ---
Progress Note (short form) - Note Progress Note: c/o cough and pleuritic chest pain with white phlegm. Feels very tired. CBC, BMP 10/09/16 07:15 10/11/16 06:35 Vital Signs Period Temp Pulse Resp BP Sys/Pinon Pulse Ox Last 24 Hr 97.4 F-98.3 F 73-95 18-20 147-186/86-96 S1S2 RRR Diffuse wheezing dry cough Abd soft NT no edema aaox3 Imp Little better Asthmatic bronchitis Rhabdomyolysis? Myopathy? improving IDDM HTN Plan iv fluids switch ceftriaxone to zithromax iv steroids bronchodilator O2 PT eval dc planning in am Problem List - Problems (1) Asthma exacerbation Code(s): J45.901 - UNSPECIFIED ASTHMA WITH (ACUTE) EXACERBATION (2) Elevated CK Code(s): R74.8 - ABNORMAL LEVELS OF OTHER SERUM ENZYMES (3) Diabetes mellitus Code(s): E11.9 - TYPE 2 DIABETES MELLITUS WITHOUT COMPLICATIONS Qualifiers: Diabetes mellitus type: type 2 Diabetes mellitus complication status: with neurologic complications Diabetes mellitus complication detail: with autonomic neuropathy Diabetes mellitus termite control servicer insulin use: with termite control servicer use Qualified Code(s): E11.43 - Type 2 diabetes mellitus with diabetic autonomic (poly)neuropathy; Z79.4 - terminal clerk (current) use of insulin (4) Hyperlipidemia Code(s): E78.5 - HYPERLIPIDEMIA, UNSPECIFIED Qualifiers: Hyperlipidemia type: mixed hyperlipidemia Qualified Code(s): E78.2 - Mixed hyperlipidemia (5) Hypertension Code(s): I10 - ESSENTIAL (PRIMARY) HYPERTENSION Qualifiers: Hypertension type: essential hypertension Qualified Code(s): I10 - Essential (primary) hypertension (6) Fever Code(s): R50.9 - FEVER, UNSPECIFIED
--- NOTE | 2016-10-11 09:44 | PN ---
Progress Note (short form) - Note Progress Note: still with cough and wheeze Vital Signs Period Temp Pulse Resp BP Sys/Pinon Pulse Ox Last 24 Hr 97.4 F-98.3 F 73-95 18-20 147-186/86-96 cor-rrr lungs bilateral wheezing and rhonchi abd soft,nt ext no edema CBC, BMP 10/09/16 07:15 10/11/16 06:35 Microbiology 10/07/16 11:03 Blood - Peripheral Venous Blood Culture - Preliminary NO GROWTH OBTAINED AFTER 72 HOURS, INCUBATION TO CONTINUE FOR 2 DAYS. 10/07/16 11:03 Blood - Peripheral Venous Blood Culture - Preliminary NO GROWTH OBTAINED AFTER 72 HOURS, INCUBATION TO CONTINUE FOR 2 DAYS. 10/07/16 13:15 Urine - Urine Clean Catch Urine Culture - Final NO GROWTH OBTAINED 10/07/16 15:25 Nasopharyngeal Swab Respiratory Virus Panel - Preliminary 10/07/16 15:25 Nasopharyngeal Swab Influenza Types A,B Antigen (MALENA) - Final 10/07/16 15:25 Nasopharyngeal Swab - Final imp/reccd fever-bronchitis asthma exacerbation rhabdomyolysis diabetes rhabdomyolysis improving d/c rocephin zpak d/w PMD please call back if needed Problem List - Problems (1) Fever Code(s): R50.9 - FEVER, UNSPECIFIED (2) Asthma exacerbation Code(s): J45.901 - UNSPECIFIED ASTHMA WITH (ACUTE) EXACERBATION (3) Elevated CK Code(s): R74.8 - ABNORMAL LEVELS OF OTHER SERUM ENZYMES (4) Diabetes mellitus Code(s): E11.9 - TYPE 2 DIABETES MELLITUS WITHOUT COMPLICATIONS Qualifiers: Diabetes mellitus type: type 2 Diabetes mellitus complication status: with neurologic complications Diabetes mellitus complication detail: with autonomic neuropathy Diabetes mellitus exterminator insulin use: with exterminator use Qualified Code(s): E11.43 - Type 2 diabetes mellitus with diabetic autonomic (poly)neuropathy; Z79.4 - custodial (current) use of insulin
[2016-10-11] MEDS ORDERED: AZITHROMYCIN 250 MG TABLET (FP) PO ONE (10:00)
[2016-10-11] MEDS ORDERED: PT OWN MED DRAWER 7, Y5N ONE ×2 (10:05→14:09)
[2016-10-11] MEDS: PANTOPRAZOLE 40 MG TABLET (FP) PO SCH (10:10)
[2016-10-11] MEDS: LISINOPRIL 10 MG TABLET (FP) PO SCH ×2 (10:10→21:39)
[2016-10-11] MEDS: methylPREDNISolone NA SUCC 40 MG/1 ML VIAL IVPB SCH ×2 (10:10→21:40)
[2016-10-11] MEDS: ASPIRIN 81 MG CHEWABLE TABLETS PO SCH (10:10)
[2016-10-11] MEDS: amLODIPine BESYLATE 10 MG TABLET (FP) PO SCH (10:10)
[2016-10-11] MEDS: METOPROLOL SUCCINATE 25 MG TAB.SR.24H (FP) PO SCH ×2 (10:10→21:41)
[2016-10-11] MEDS: ENOXAPARIN NA (PORCINE) 40 MG/0.4 ML DISP.SYRIN SQ SCH (10:16)
[2016-10-11] MEDS ORDERED: guaiFENesin/D-M SUGAR-FREE/ACLHOL-FREE 118 ML BOTTLE PO PRN (11:00)
--- NOTE | 2016-10-11 12:27 | PN ---
Progress Note, Physician History of Present Illness: pulmonary alert,oob-chair,feeling better,less congested - Current Medication List Current Medications: Active Medications Acetaminophen (Tylenol -) 650 mg PO Q6H PRN PRN Reason: FEVER OR PAIN Last Admin: 10/10/16 09:10 Dose: 650 mg Acetaminophen (Tylenol -) 325 mg PO Q6H PRN PRN Reason: PAIN Amlodipine Besylate (Norvasc -) 10 mg PO DAILY [facility] Last Admin: 10/11/16 10:10 Dose: 10 mg Aspirin (Asa -) 81 mg PO DAILY [facility] Last Admin: 10/11/16 10:10 Dose: 81 mg Azithromycin (Zithromax -) 250 mg PO DAILY [facility] Enoxaparin Sodium (Lovenox -) 40 mg SQ DAILY [facility] Last Admin: 10/11/16 10:16 Dose: 40 mg Guaifenesin (Diabetic Tussin Dm -) 10 ml PO Q4H PRN PRN Reason: COUGH Last Admin: 10/11/16 12:06 Dose: 10 ml Insulin Aspart (Novolog Vial Sliding Scale -) 1 vial SQ ACHS [facility] PRN Reason: Protocol Last Admin: 10/11/16 11:36 Dose: Not Given Insulin Detemir (Levemir Vial) 50 units SQ BIDI [facility] Last Admin: 10/11/16 07:56 Dose: 50 units Ipratropium [place] (Atrovent 0.02% Nebulizer -) 1 amp NEB Q6H PRN PRN Reason: WHEEZING Lisinopril (Prinivil) 10 mg PO BID [facility] Last Admin: 10/11/16 10:10 Dose: 10 mg Methylprednisolone Sodium Succinate (Solu-Medrol -) 40 mg IVPB BID [facility] Last Admin: 10/11/16 10:10 Dose: 40 mg Metoprolol Succinate (Toprol Xl -) 25 mg PO BID [facility] Last Admin: 10/11/16 10:10 Dose: 25 mg Montelukast Sodium (Singulair -) 10 mg PO HS [facility] Last Admin: 10/10/16 22:16 Dose: 10 mg Oxycodone HCl (Roxicodone -) 5 mg PO Q6H PRN PRN Reason: PAIN Pantoprazole Sodium (Protonix -) 40 mg PO DAILY [facility] Last Admin: 10/11/16 10:10 Dose: 40 mg - Objective Vital Signs: Vital Signs Temperature 98 F 06/14/17 06:00 Pulse Rate 73 10/11/16 06:00 Respiratory Rate 20 10/11/16 06:00 Blood Pressure 147/86 10/11/16 06:00 O2 Sat by Pulse Oximetry (%) 97 10/10/16 09:00 Constitutional: Yes: Well Nourished, Calm Eyes: Yes: WNL HENT: Yes: WNL Neck: Yes: WNL Cardiovascular: Yes: Regular Rate and Rhythm, S1, S2 Respiratory: Yes: Wheezes (mery wheezes) Gastrointestinal: Yes: Normal Bowel Sounds, Soft Extremities: Yes: WNL Edema: No Labs: CBC, BMP 10/09/16 07:15 10/11/16 06:35 INR, PTT INR 1.05 (0.82-1.09) 10/07/16 11:00 Assessment/Plan Problem List - Problems (1) Asthma exacerbation Code(s): J45.901 - UNSPECIFIED ASTHMA WITH (ACUTE) EXACERBATION (2) Cervical myofascial strain Code(s): S16.1XXA - STRAIN OF MUSCLE, FASCIA AND TENDON AT NECK LEVEL, INIT Qualifiers: Encounter type: initial encounter Qualified Code(s): S16.1XXA - Strain of muscle, fascia and tendon at neck level, initial encounter (3) Chest pain Code(s): R07.9 - CHEST PAIN, UNSPECIFIED Qualifiers: Chest pain type: precordial chest pain Qualified Code(s): R07.2 - Precordial pain (4) Diabetes mellitus Code(s): E11.9 - TYPE 2 DIABETES MELLITUS WITHOUT COMPLICATIONS Qualifiers: Diabetes mellitus type: type 2 Diabetes mellitus complication status: with neurologic complications Diabetes mellitus complication detail: with autonomic neuropathy Diabetes mellitus termite technician insulin use: with assisted use Qualified Code(s): E11.43 - Type 2 diabetes mellitus with diabetic autonomic (poly)neuropathy; Z79.4 - terminal worker (current) use of insulin (5) Hyperlipidemia Code(s): E78.5 - HYPERLIPIDEMIA, UNSPECIFIED Qualifiers: Hyperlipidemia type: mixed hyperlipidemia Qualified Code(s): E78.2 - Mixed hyperlipidemia (6) Hypertension Code(s): I10 - ESSENTIAL (PRIMARY) HYPERTENSION Qualifiers: Hypertension type: essential hypertension Qualified Code(s): I10 - Essential (primary) hypertension Assessment/Plan Medrol taper BD TX O2 as needed ABX per ID VTE prophylaxis Local pain control Outpatient PFTs DR FLORES
[2016-10-11] MEDS: MONTELUKAST NA 10 MG TABLET PO SCH (21:39)
[2016-10-11] MEDS ORDERED: INSULIN DETEMIR 100 UNITS/ML MDV SQ SCH (22:00)
[2016-10-12] MEDS: INSULIN SLIDING SCALE (NOVOLOG) 1 VIAL SQ SCH ×2 (06:24→11:06)
[2016-10-12] MEDS ORDERED: INSULIN DETEMIR 100 UNITS/ML MDV SQ SCH ×2 (07:00→10:00)
[2016-10-12 07:52] VITALS: TEMP 98.1
--- NOTE | 2016-10-12 09:10 | DS ---
Physical Examination Vital Signs: Vital Signs Temperature 98.1 F 10/12/16 06:00 Pulse Rate 69 10/12/16 06:00 Respiratory Rate 20 10/12/16 06:00 Blood Pressure 147/76 10/12/16 06:00 O2 Sat by Pulse Oximetry (%) 98 10/11/16 21:00 Constitutional: Yes: Calm Eyes: Yes: EOM Intact HENT: Yes: Normocephalic Neck: Yes: Trachea Midline Cardiovascular: Yes: Regular Rate and Rhythm Respiratory: Yes: CTA Bilaterally (coarse BS) Gastrointestinal: Yes: Normal Bowel Sounds, Soft Musculoskeletal: Yes: WNL Extremities: Yes: WNL Peripheral Pulses WNL: Yes ...Motor Strength: WNL Labs: CBC, BMP 10/09/16 07:15 10/11/16 06:35 Discharge Summary Reason For Visit: SEPSIS, ELEVATED CK, ASTHMA, EXACERBATION Current Active Problems Asthma exacerbation (Acute) Elevated CK (Acute) Fever (Acute) Sepsis (Acute) Hospital Course: Admitted for fever, chills, acute asthma exacerbation, bronchitis and elevated muscle enzymes with lactic acidosis. Received iv hydration, iv ceftriaxone, iv steroids, her home statin was stopped. Currently ambulating without assistance, respiratory status much improved, sugars are well controlled and medically is stable to go home with VNS and outpt follow up. Condition: Fair - Instructions Diet, Activity, Other Instructions: F/up in office next wek with dr. Roth Referrals: Juan Pablo Perez MD [Primary Care Provider] - Disposition: VNS/HOME HEALTH CARE - Home Medications Comprehensive Discharge Medication List: Ambulatory Orders Calcium Carbonate/Vitamin D3 [Calcium 500-Vit D3 200 Caplet] 1 tab PO DAILY Montelukast Na [Singulair -] 10 mg PO HS 05/22/12 Docusate Sodium [Colace -] 300 mg PO DAILY PRN 12/02/12 Amlodipine Besylate [Norvasc -] 10 mg PO DAILY #0 tablet 12/13/12 Metoprolol Succinate [Toprol XL -] 25 mg PO BID #0 tab.sr.24h 12/13/12 Aspirin [ASA -] 81 mg PO DAILY 01/25/16 Budesonide/Formeterol Fumarate [SYMBICORT 160/4.5mcg -] 3 inh PO BID 01/25/16 Pantoprazole Sodium [Protonix -] 40 mg PO DAILY tablet.ec 01/28/16 Insulin (Levemir) [Levemir Vial] 35 units SQ AM ml 01/31/16 Azithromycin [Zithromax 250mg Tablets -] 250 mg PO DAILY #3 tablet 10/12/16 Guaifenesin/D-Methorphan Hb [Diabetic Tussin Dm -] 10 ml PO Q4H PRN #400 ml Insulin (Levemir) [Levemir Vial] 35 units SQ HS #0 ml 10/12/16 Ipratropium 0.02% Nebulizer [Atrovent 0.02% Nebulizer -] 1 amp NEB Q6H PRN #120 amp 10/12/16 Methylprednisolone [Medrol Dose [place]] 4 mg PO ASDIR #21 tablet 10/12/16
[2016-10-12] MEDS: PANTOPRAZOLE 40 MG TABLET (FP) PO SCH (09:37)
[2016-10-12] MEDS: methylPREDNISolone NA SUCC 40 MG/1 ML VIAL IVPB SCH (09:37)
[2016-10-12] MEDS: METOPROLOL SUCCINATE 25 MG TAB.SR.24H (FP) PO SCH (09:37)
[2016-10-12] MEDS: LISINOPRIL 10 MG TABLET (FP) PO SCH (09:37)
[2016-10-12] MEDS: ASPIRIN 81 MG CHEWABLE TABLETS PO SCH (09:37)
[2016-10-12] MEDS: ENOXAPARIN NA (PORCINE) 40 MG/0.4 ML DISP.SYRIN SQ SCH (09:37)
[2016-10-12] MEDS: amLODIPine BESYLATE 10 MG TABLET (FP) PO SCH (09:37)
[2016-10-12] MEDS ORDERED: AZITHROMYCIN 250 MG TABLET (FP) PO SCH (10:00)
--- NOTE | 2016-10-12 11:25 | PN ---
Progress Note (short form) - Note Progress Note: Overall appears better. Breathing has improved. Lactic acid normal. Intake & Output 10/09/16 10/10/16 10/11/16 10/12/16 23:59 23:59 23:59 23:59 Intake Total 3635 2400 1525 Output Total 600 2 Balance 3635 1800 1523 Last Vital Signs Temp Pulse Resp BP Pulse Ox 98.1 F 69 20 147/76 98 10/12/16 06:00 10/12/16 06:00 10/12/16 06:00 10/12/16 06:00 10/11/16 21:00 Active Medications Acetaminophen (Tylenol -) 650 mg PO Q6H PRN PRN Reason: FEVER OR PAIN Last Admin: 10/10/16 09:10 Dose: 650 mg Acetaminophen (Tylenol -) 325 mg PO Q6H PRN PRN Reason: PAIN Amlodipine Besylate (Norvasc -) 10 mg PO DAILY [facility] Last Admin: 10/12/16 09:37 Dose: 10 mg Aspirin (Asa -) 81 mg PO DAILY [facility] Last Admin: 10/12/16 09:37 Dose: 81 mg Azithromycin (Zithromax -) 250 mg PO DAILY [facility] Last Admin: 10/12/16 09:38 Dose: 250 mg Enoxaparin Sodium (Lovenox -) 40 mg SQ DAILY [facility] Last Admin: 10/12/16 09:37 Dose: 40 mg Guaifenesin (Diabetic Tussin Dm -) 10 ml PO Q4H PRN PRN Reason: COUGH Last Admin: 10/11/16 12:06 Dose: 10 ml Insulin Aspart (Novolog Vial Sliding Scale -) 1 vial SQ ACHS [facility] PRN Reason: Protocol Last Admin: 10/12/16 11:06 Dose: Not Given Insulin Detemir (Levemir Vial) 40 units SQ HS [facility] Last Admin: 10/11/16 21:37 Dose: 40 units Insulin Detemir (Levemir Vial) 50 units SQ ACBK [facility] Last Admin: 10/12/16 08:06 Dose: 50 units Ipratropium [place] (Atrovent 0.02% Nebulizer -) 1 amp NEB Q6H PRN PRN Reason: WHEEZING Lisinopril (Prinivil) 10 mg PO BID [facility] Last Admin: 10/12/16 09:37 Dose: 10 mg Methylprednisolone Sodium Succinate (Solu-Medrol -) 40 mg IVPB BID [facility] Last Admin: 10/12/16 09:37 Dose: 40 mg Metoprolol Succinate (Toprol Xl -) 25 mg PO BID [facility] Last Admin: 10/12/16 09:37 Dose: 25 mg Montelukast Sodium (Singulair -) 10 mg PO HS [facility] Last Admin: 10/11/16 21:39 Dose: 10 mg Pantoprazole Sodium (Protonix -) 40 mg PO DAILY [facility] Last Admin: 10/12/16 09:37 Dose: 40 mg Constitutional: Yes: No Distress Eyes: Yes: Conjunctiva Clear, EOM Intact HENT: Yes: small left temporal hematoma Neck: Yes: Supple, Trachea Midline Cardiovascular: Yes: Regular Rate and Rhythm Respiratory: Yes: Cough, few Rhonchi, No: Accessory Muscle Use, Rales, Stridor, Wheezes ...Inspection: Yes: WNL ...Clubbing: No Gastrointestinal: Yes: WNL, Normal Bowel Sounds, Soft, Abdomen, Obese Renal/: Yes: WNL Musculoskeletal: Yes: WNL Extremities: Yes: WNL Edema: No Peripheral Pulses WNL: Yes Integumentary: Yes: WNL Neurological: Yes: WNL, Alert, Oriented ...Motor Strength: WNL Psychiatric: Yes: WNL, Alert, Oriented Labs: Laboratory Results - last 24 hr 10/11/16 10/11/16 10/11/16 11:31 17:12 21:04 POC Glucometer 123 154 173 10/12/16 05:55 POC Glucometer 82 Problem List - Problems (1) Asthma exacerbation Code(s): J45.901 - UNSPECIFIED ASTHMA WITH (ACUTE) EXACERBATION (2) Cervical myofascial strain Code(s): S16.1XXA - STRAIN OF MUSCLE, FASCIA AND TENDON AT NECK LEVEL, INIT Qualifiers: Encounter type: initial encounter Qualified Code(s): S16.1XXA - Strain of muscle, fascia and tendon at neck level, initial encounter (3) Chest pain Code(s): R07.9 - CHEST PAIN, UNSPECIFIED Qualifiers: Chest pain type: precordial chest pain Qualified Code(s): R07.2 - Precordial pain (4) Diabetes mellitus Code(s): E11.9 - TYPE 2 DIABETES MELLITUS WITHOUT COMPLICATIONS Qualifiers: Diabetes mellitus type: type 2 Diabetes mellitus complication status: with neurologic complications Diabetes mellitus complication detail: with autonomic neuropathy Diabetes mellitus predatory animal exterminator insulin use: with predatory animal exterminator use Qualified Code(s): E11.43 - Type 2 diabetes mellitus with diabetic autonomic (poly)neuropathy; Z79.4 - truck terminal manager (current) use of insulin (5) Hyperlipidemia Code(s): E78.5 - HYPERLIPIDEMIA, UNSPECIFIED Qualifiers: Hyperlipidemia type: mixed hyperlipidemia Qualified Code(s): E78.2 - Mixed hyperlipidemia (6) Hypertension Code(s): I10 - ESSENTIAL (PRIMARY) HYPERTENSION Qualifiers: Hypertension type: essential hypertension Qualified Code(s): I10 - Essential (primary) hypertension Assessment/Plan Prednisone taper ABX per ID Local pain control Fall precautions Outpatient PFTs once stable D/C planning Dr Palma Problem List - Problems (1) Asthma exacerbation Code(s): J45.901 - UNSPECIFIED ASTHMA WITH (ACUTE) EXACERBATION (2) Cervical myofascial strain Code(s): S16.1XXA - STRAIN OF MUSCLE, FASCIA AND TENDON AT NECK LEVEL, INIT Qualifiers: Encounter type: initial encounter Qualified Code(s): S16.1XXA - Strain of muscle, fascia and tendon at neck level, initial encounter (3) Chest pain Code(s): R07.9 - CHEST PAIN, UNSPECIFIED Qualifiers: Chest pain type: precordial chest pain Qualified Code(s): R07.2 - Precordial pain (4) Diabetes mellitus Code(s): E11.9 - TYPE 2 DIABETES MELLITUS WITHOUT COMPLICATIONS Qualifiers: Diabetes mellitus type: type 2 Diabetes mellitus complication status: with neurologic complications Diabetes mellitus complication detail: with autonomic neuropathy Diabetes mellitus predatory animal exterminator insulin use: with predatory animal exterminator use Qualified Code(s): E11.43 - Type 2 diabetes mellitus with diabetic autonomic (poly)neuropathy; Z79.4 - truck terminal manager (current) use of insulin (5) Hyperlipidemia Code(s): E78.5 - HYPERLIPIDEMIA, UNSPECIFIED Qualifiers: Hyperlipidemia type: mixed hyperlipidemia Qualified Code(s): E78.2 - Mixed hyperlipidemia (6) Hypertension Code(s): I10 - ESSENTIAL (PRIMARY) HYPERTENSION Qualifiers: Hypertension type: essential hypertension Qualified Code(s): I10 - Essential (primary) hypertension
[2016-10-12 20:01] VITALS: BP 136/70; PULSE 82
== END 2016-10-12 15:24 | disposition home health service (06) | DRG 872 ==
LOC: JER 10:26 → JERBED 12:39 → J5S 14:15
PROVIDERS: ADMIT Internal Medicine; ATTEND Internal Medicine
DX: A41.9 Sepsis, unspecified organism (principal); J45.901 Unspecified asthma with (acute) exacerbation; E87.2 Acidosis; M62.82 Rhabdomyolysis; I10 Essential (primary) hypertension; E78.5 Hyperlipidemia, unspecified; E11.319 Type 2 diabetes mellitus with unspecified diabetic retinopathy without macular edema; J40 Bronchitis, not specified as acute or chronic; Z79.4 Long term (current) use of insulin
CPT/HCPCS: 36415; 71010-TC; 80053; 81003; 81015; 82550; 82553; 83605; 83690; 84484; 85025; 85610; 87040; 87086; 87254; 87804; 93005; 93010; 94640; 97116-GP; 97162-PG; 99283-25

== ENCOUNTER 2017-08-02 08:58 | Day surgery (SDC) | payer MEDICARE, OTHER ==
[2017-08-01 17:44] VITALS: BMI 34.3
--- NOTE | 2017-08-01 19:23 | HP ---
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, pingueculum) Eye Medications: vigamox 3/0 , ilevro 1/0 Previous Eye Surgery: s/p vitrectomy os - Medical History Illnesses: Asthma, Hypertension, Hypercholesterolemia, Diabetes, Other (OA) Current Medications: Ambulatory Orders Calcium Carbonate/Vitamin D3 [Calcium 500-Vit D3 200 Caplet] 1 tab PO DAILY Montelukast Na [Singulair -] 10 mg PO HS 05/22/12 Docusate Sodium [Colace -] 300 mg PO DAILY PRN 12/02/12 Amlodipine Besylate [Norvasc -] 10 mg PO DAILY #0 tablet 12/13/12 Aspirin [ASA -] 81 mg PO DAILY 01/25/16 Budesonide/Formeterol Fumarate [SYMBICORT 160/4.5mcg -] 3 inh PO BID 01/25/16 Pantoprazole Sodium [Protonix -] 40 mg PO DAILY tablet.ec 01/28/16 Insulin (Levemir) [Levemir Vial] 35 units SQ AM ml 01/31/16 Ipratropium 0.02% Nebulizer [Atrovent 0.02% Nebulizer -] 1 amp NEB Q6H PRN #120 amp 10/12/16 Baclofen 10 mg PO DAILY 08/01/17 Cetirizine HCl 10 mg PO DAILY 08/01/17 Cholecalciferol (Vitamin D3) [Vitamin D] 2,000 unit PO DAILY 08/01/17 Furosemide [Lasix -] 20 mg PO DAILY 08/01/17 Glimepiride 4 mg PO DAILY 08/01/17 Insulin (Levemir) [Levemir Vial] 50 units SQ HS 08/01/17 Lisinopril 5 mg PO DAILY 08/01/17 Meclizine HCl 12.5 mg PO TID 08/01/17 Metformin HCl [Metformin HCl ER] 500 mg PO DAILY 08/01/17 Metoprolol Succinate [Toprol XL -] 25 mg PO DAILY 08/01/17 Potassium Chloride 20 meq PO DAILY 08/01/17 Pravastatin Sodium 20 mg PO HS 08/01/17 Pregabalin [Lyrica -] 50 mg PO HS 08/01/17 Allergies/Adverse Reactions: Allergies Allergy/AdvReac Type Severity Reaction Status Date / Time No Known Allergies Allergy Verified 04/07/16 15:07 Ocular Examination - Best Corrected Visual Acuity Distance: Right eye: CF 1 foot Distance: Left eye: CF 5 feel - External/Slit Lamp Examination Abnormalities: normal - Intraocular Pressure Intraocular Pressure - Right eye: 15 Intraocular Pressure-Left eye: 15 - Lens Lens: 3+ NS vacoules, brunescent - Vitreous/Retina Vitreous/Retina: C:D 0.3 m hazy view, v attentuaed, p dot blot heme - Special Examination M - Right eye: +0.75 -1.00 x 110 M - Left eye: -0.25 -0.75 x 045 K - Right eye: 43.25/44.25 x 180 K - Left eye: 43.25/44.5 x 180 AL - Right eye: 23.05 AL - Left eye: 23.02 IOL bag: +22.0 d [id number] IOL sulcus: +21.5 d [id number] IOL AC: +18.5 d MTA 4uo - Impression Impression: Cataract Right Eye - Plan Plan: Phacoemulsification and cataract extraction - IOL Right eye (trypan blue) Post-hospital care will be provided in office on: 08/10/17
--- NOTE | 2017-08-02 07:35 | HP ---
History & Physical Update - History History: No Change - Physical Physical: No Change - Assessment Assessment: No Change - Plan Plan: No Change (Reviewed H and p by dr. Roth from 07/20/17 no changes)
[~2017-08-02 08:58] MED LIST: ACETAMINOPHEN 325 MG TABLET (FP) PO PRN; CHONDROITIN SU A/HYALUR SOD 1 KIT IO ONE; CIPROFLOXACIN HCL 0.3% OPHTH 2.5ML BOTTLE OP SCH; DICLOFENAC SODIUM 0.1% OPHTHALMIC 2.5ML BOTTLE OP SCH; LIDOCAINE HCL 1% PRESERVATIVE FREE - 30ML VIAL IO ONE; LIDOCAINE HCL 2% JELLY (5 ML/TUBE) TP ONE; PHENYLEPHRINE 2.5% OPHTH SOLN 15 ML BOTTLE OP SCH; TOBRAMYCIN/DEXAMETHASONE OPHTH. OINTMENT 1 TUBE TP ONE
[2017-08-02] MEDS: TROPICAMIDE 1% OPHTH SOLN 15 ML BOTTLE OP SCH ×3 (10:00→10:32)
[2017-08-02] MEDS ORDERED: FLURBIPROFEN 0.03% OPHTH SOLN 2.5 ML BOTTLE OP SCH (10:00)
[2017-08-02] MEDS: CIPROFLOXACIN 0.3% EYE DROPS 5 ML BOTTLE ONE ×3 (10:00→10:31)
[2017-08-02] MEDS: PHENYLEPHRINE 2.5% OPHTH SOLN 15 ML BOTTLE ONE ×3 (10:00→10:32)
[2017-08-02] MEDS: FLURBIPROFEN 0.03% OPHTH SOLN 2.5 ML BOTTLE ONE ×2 (10:15→10:31)
[2017-08-02] MEDS ORDERED: POVIDONE-IODINE 5% OPHTHALMIC PREP 30 ML SOLUTION ONE (10:51)
[2017-08-02] MEDS ORDERED: LIDOCAINE HCL/PF 2% SDV 5ML VIAL ONE (10:51)
[2017-08-02] MEDS ORDERED: PROPOFOL 20 ML ONE (11:15)
[2017-08-02] MEDS ORDERED: LIDOCAINE HCL/PF 2% SDV 5ML VIAL INF ONE ×2 (11:21)
[2017-08-02] MEDS ORDERED: BUPIVACAINE HCL/PF 0.75% 10 ML VIAL RB ONE (11:21)
[2017-08-02] MEDS ORDERED: POVIDONE-IODINE 5% OPHTHALMIC PREP 30 ML SOLUTION OD ONE (11:23)
[2017-08-02] MEDS ORDERED: TETRACAINE 0.5% OPHTH SOLN 2 ML BOTTLE OD ONE (11:29)
[2017-08-02] MEDS ORDERED: LIDOCAINE HCL 1% PRESERVATIVE FREE - 30ML VIAL IO ONE (11:29)
[2017-08-02] MEDS ORDERED: CHONDROITIN SU A/HYALUR SOD 1 KIT IO ONE (11:29)
[2017-08-02] MEDS ORDERED: BSS (NA/CA/MG/K) BALANCED SALT SOLUTION OPHTH SOLN 15 ML BOTTLE OD ONE (11:29)
[2017-08-02] MEDS ORDERED: EPINEPHrine/PF 1 MG/1 ML (1:1,000) AMPULE SQ ONE (11:41)
[2017-08-02] MEDS ORDERED: TOBRAMYCIN/DEXAMETHASONE OPHTH. OINTMENT 1 TUBE TP ONE (11:54)
--- NOTE | 2017-08-02 12:01 | OP ---
Ophthalmology Operative Note Pre-Operative Diagnosis: Cataract Affected Eye: Right Operation: Phacoemulsification and cataract extraction with PCIOL Findings: cataract right eye Post-Operative Diagnosis: Same as Pre-op Information Security Officer: None Anesthesia: Local, Retrobulbar Specimens Removed: none Estimated blood loss: <1 cc Drains & Tubes with Location: none Operative Report Dictated: Yes
--- NOTE | 2017-08-02 12:47 | OP ---
DATE OF OPERATION: DATE OF DICTATION: 08/02/2017 PREOPERATIVE DIAGNOSIS: Cataract, right eye. POSTOPERATIVE DIAGNOSIS: Cataract, right eye. PROCEDURE: Phacoemulsification and cataract extraction with insertion of posterior chamber intraocular lens, right eye. SURGEON: Kimberly Cleaning MD ASP NET PROGRAMMER: None. ANESTHESIA: Retrobulbar block. ANESTHESIOLOGIST: Stephanie Mesa MD OPERATIVE PROCEDURE: Following satisfactory intravenous sedation the patient received local anesthesia using a 50:50 mixture of lidocaine 2% and Marcaine 0.75%. A van Lint lid block was delivered to the right eye using 4 mL of the mixture and a retrobulbar injection using 4 mL of the mixture. The patient was then prepped and draped in the usual sterile fashion so as to expose only the right eye. Ophthalmic Betadine was instilled into the inferior fornix, and the lashes were taped out of the surgical field. An eyelid speculum was placed into the right eye. A paracentesis was made in superior clear cornea at the limbus. Then, 0.5 mL of nonpreserved lidocaine was injected into the anterior chamber. Viscoelastic material was the instilled into the anterior chamber via the paracentesis. A 2.4-mm keratome was then used to create the main incision in temporal clear cornea at the limbus. A continuous curvilinear capsulorhexis was performed using a cystotome and Utrata forceps. Hydrodissection of the lens cortex was performed using BSS and a cannula until the nucleus was noted to be freely rotating. The phacoemulsification tip was inserted via the main wound and used to scope two perpendicular grooves into the lens nucleus. The nucleus was cracked into four quadrants. Each quadrant was lifted out of the capsule into the iris plane and individually phacoemulsified. The remaining cortical material was then aspirated using the irrigation and aspiration port. The capsular bag was inflated using ProVisc and a Pre-Loaded AcrySoft lens, model [id number] +22.0 diopter, was injected into the capsular bag and centered using a Sinskey hook. The residual viscoelastic material was removed from the anterior chamber using irrigation and aspiration. The wound edges were hydrated using BSS. The wound was tested for leakage and was found to be watertight. Therefore, Tobradex ointment was placed in the eye, and the speculum was removed from the eye. A sterile dressing and shield were placed over the eye, and the patient was transferred to the recovery room in stable condition and told to follow up in 1 day. KIMBERLY CLEANING M.D. [id number]
[2017-08-02 16:08] VITALS: BP 140/80; PULSE 84; TEMP 97.8
== END 2017-08-02 13:30 | disposition home or self-care (01) ==
LOC: JASU-SURG 08:58
PROVIDERS: ATTEND Ophthalmology
PROC: 08RJ3JZ Replacement of Right Lens with Synthetic Substitute, Percutaneous Approach (ICD-10-PCS; principal; 2017-08-02 11:00)
DX: H26.9 Unspecified cataract (principal)
CPT/HCPCS: 82962

== ENCOUNTER 2017-08-30 06:15 | Day surgery (SDC) | payer MEDICARE, OTHER ==
[2017-08-29 12:18] VITALS: BMI 32.1
--- NOTE | 2017-08-29 17:04 | HP ---
- Patient Scheduled date of Surgery: 08/30/17 Scheduled Surgical Procedure: Phacoemulsification and cataract extraction with PCIOL Affected Eye: Left Chief Complaint (Indication for surgery): Decreased vision affecting ADLs - Ocular History Other Eye History: Other (TRD OD) Eye Medications: ilevro, vigamox Previous Eye Surgery: s/p ce/pciol od, s/p vitrectomy os for VH - Medical History Illnesses: Asthma, Hypercholesterolemia, Diabetes, Other (OA) Current Medications: Ambulatory Orders Calcium Carbonate/Vitamin D3 [Calcium 500-Vit D3 200 Caplet] 1 tab PO DAILY Montelukast Na [Singulair -] 10 mg PO HS 05/22/12 Docusate Sodium [Colace -] 300 mg PO DAILY PRN 12/02/12 Amlodipine Besylate [Norvasc -] 10 mg PO DAILY #0 tablet 12/13/12 Aspirin [ASA -] 81 mg PO DAILY 01/25/16 Budesonide/Formeterol Fumarate [SYMBICORT 160/4.5mcg -] 3 inh PO BID 01/25/16 Pantoprazole Sodium [Protonix -] 40 mg PO DAILY tablet.ec 01/28/16 Insulin (Levemir) [Levemir Vial] 35 units SQ AM ml 01/31/16 Ipratropium 0.02% Nebulizer [Atrovent 0.02% Nebulizer -] 1 amp NEB Q6H PRN #120 amp 10/12/16 Baclofen 10 mg PO DAILY 08/01/17 Cetirizine HCl 10 mg PO DAILY 08/01/17 Cholecalciferol (Vitamin D3) [Vitamin D] 2,000 unit PO DAILY 08/01/17 Furosemide [Lasix -] 20 mg PO DAILY 08/01/17 Glimepiride 4 mg PO DAILY 08/01/17 Insulin (Levemir) [Levemir Vial] 50 units SQ HS 08/01/17 Lisinopril 5 mg PO DAILY 08/01/17 Meclizine HCl 12.5 mg PO TID PRN 08/01/17 Metformin HCl [Metformin HCl ER] 500 mg PO DAILY 08/01/17 Metoprolol Succinate [Toprol XL -] 25 mg PO DAILY 08/01/17 Potassium Chloride 20 meq PO DAILY 08/01/17 Pravastatin Sodium 20 mg PO HS 08/01/17 Pregabalin [Lyrica -] 50 mg PO HS 08/01/17 Allergies/Adverse Reactions: Allergies Allergy/AdvReac Type Severity Reaction Status Date / Time No Known Allergies Allergy Verified 08/02/17 10:05 Ocular Examination - Best Corrected Visual Acuity Distance: Right eye: 20/400 Distance: Left eye: CF 5 feet - External/Slit Lamp Examination Abnormalities: pingueculum - Intraocular Pressure Intraocular Pressure - Right eye: 19 Intraocular Pressure-Left eye: 15 - Lens Lens: 3+ NS - Vitreous/Retina Vitreous/Retina: c:d 0.3 m/v wnl VH os with dot blot heme and pre retinal heme peripherally - Special Examination M - Right eye: plano-0.75 x 090 M - Left eye: -0.25-0.75 x 045 K - Right eye: 42/42.75 x 152 K - Left eye: 43.25/44.50 x 160 AL - Left eye: 23.02 IOL bag: +22.0 d AUOOTO IOL sulcus: +21.5 d [id number] IOL AC: +18.5 d MTA4uo - Impression Impression: Cataract Left Eye - Plan Plan: Phacoemulsification and cataract extraction - IOL Left eye Post-hospital care will be provided in office on: 08/31/17
[~2017-08-30 06:15] MED LIST changes: -CHONDROITIN SU A/HYALUR SOD 1 KIT IO ONE; -CIPROFLOXACIN HCL 0.3% OPHTH 2.5ML BOTTLE OP SCH; -DICLOFENAC SODIUM 0.1% OPHTHALMIC 2.5ML BOTTLE OP SCH; +KETOROLAC TROMETHAMINE 0.5% 5 ML BOTTLE OPTHALMIC OP SCH; -LIDOCAINE HCL 1% PRESERVATIVE FREE - 30ML VIAL IO ONE; -LIDOCAINE HCL 2% JELLY (5 ML/TUBE) TP ONE; -PHENYLEPHRINE 2.5% OPHTH SOLN 15 ML BOTTLE OP SCH; +TOBRAMYCIN/DEXAMETHASONE OPHTH. OINTMENT 1 TUBE OS ONE; -TOBRAMYCIN/DEXAMETHASONE OPHTH. OINTMENT 1 TUBE TP ONE
[2017-08-30] MEDS ORDERED: CIPROFLOXACIN HCL 0.3% OPHTH 2.5ML BOTTLE OP SCH (06:45)
[2017-08-30] MEDS ORDERED: TROPICAMIDE 1% OPHTH SOLN 15 ML BOTTLE OP SCH (06:45)
[2017-08-30] MEDS ORDERED: PHENYLEPHRINE 2.5% OPHTH SOLN 15 ML BOTTLE OP SCH (06:45)
[2017-08-30] MEDS: PHENYLEPHRINE 2.5% OPHTH SOLN 15 ML BOTTLE ONE ×3 (06:50→08:30)
[2017-08-30] MEDS: TROPICAMIDE 1% OPHTH SOLN 15 ML BOTTLE ONE ×3 (06:50→08:30)
[2017-08-30] MEDS: FLURBIPROFEN 0.03% OPHTH SOLN 2.5 ML BOTTLE ONE ×2 (06:50→07:10)
[2017-08-30] MEDS: CIPROFLOXACIN 0.3% EYE DROPS 5 ML BOTTLE ONE ×3 (06:50→08:29)
[2017-08-30] MEDS ORDERED: CHONDROITIN SU A/HYALUR SOD 1 KIT ONE (07:06)
--- NOTE | 2017-08-30 07:21 | HP ---
History & Physical Update - History History: No Change - Physical Physical: No Change - Assessment Assessment: No Change - Plan Plan: No Change (Reviewed Dr. Roth's H and P from 08/15/17 no changes)
[2017-08-30] MEDS ORDERED: TOBRAMYCIN/DEXAMETHASONE OPHTH. OINTMENT 1 TUBE ONE (07:25)
[2017-08-30] MEDS ORDERED: LIDOCAINE HCL 2% JELLY (5 ML/TUBE) ONE (07:26)
[2017-08-30] MEDS ORDERED: LIDOCAINE HCL/PF 1% SDV 5ML VIAL ONE (07:27)
[2017-08-30] MEDS ORDERED: BSS (NA/CA/MG/K) BALANCED SALT SOLUTION OPHTH SOLN 15 ML BOTTLE ONE (07:27)
[2017-08-30] MEDS ORDERED: LIDOCAINE HCL/PF 2% SDV 5ML VIAL ONE ×2 (09:08→09:22)
[2017-08-30] MEDS ORDERED: MIDAZOLAM HCL 2 MG/2 ML SINGLE DOSE VIAL ONE (09:10)
[2017-08-30] MEDS ORDERED: PROPOFOL 20 ML ONE ×2 (09:10→09:40)
[2017-08-30] MEDS ORDERED: BUPIVACAINE HCL/PF 0.75% 10 ML VIAL ONE (09:22)
[2017-08-30] MEDS ORDERED: TOBRAMYCIN/DEXAMETHASONE OPHTH. OINTMENT 1 TUBE OS ONE (09:29)
[2017-08-30] MEDS ORDERED: BUPIVACAINE HCL/PF 0.75% 10 ML VIAL RB ONE (09:42)
[2017-08-30] MEDS ORDERED: LIDOCAINE HCL/PF 2% SDV 5ML VIAL INF ONE (09:42)
[2017-08-30] MEDS ORDERED: LIDOCAINE HCL 2% JELLY (5 ML/TUBE) TP ONE (09:44)
[2017-08-30] MEDS ORDERED: POVIDONE-IODINE 5% OPHTHALMIC PREP 30 ML SOLUTION OS ONE (09:46)
[2017-08-30] MEDS ORDERED: LIDOCAINE HCL 1% PRESERVATIVE FREE - 30ML VIAL IO ONE (09:52)
[2017-08-30] MEDS ORDERED: BSS (NA/CA/MG/K) BALANCED SALT SOLUTION OPHTH SOLN 15 ML BOTTLE OS ONE (09:52)
[2017-08-30] MEDS ORDERED: CHONDROITIN SU A/HYALUR SOD 1 KIT IO ONE (09:52)
[2017-08-30] MEDS ORDERED: EPINEPHrine/PF 1 MG/1 ML (1:1,000) AMPULE SQ ONE (09:59)
--- NOTE | 2017-08-30 10:23 | OP ---
Ophthalmology Operative Note Pre-Operative Diagnosis: Cataract Affected Eye: Left Operation: Phacoemulsification and cataract extraction with PCIOL Findings: cataract left eye Post-Operative Diagnosis: Same as Pre-op Theatre Arts Professor: Colton Anesthesiologist: Francisco Coley Anesthesia: Local, Retrobulbar Specimens Removed: none Estimated blood loss: <1 cc Drains & Tubes with Location: none Operative Report Dictated: Yes
--- NOTE | 2017-08-30 10:46 | OP ---
DATE OF OPERATION: 08/30/2017 PREOPERATIVE DIAGNOSIS: Cataract, left eye. POSTOPERATIVE DIAGNOSIS: Nuclear cataract, left eye. PROCEDURE: Phacoemulsification and cataract extraction with insertion of posterior chamber intraocular lens, left eye. SURGEON: Kimberly Cleaning MD DIRECTOR OF DONOR RELATIONS: None. ANESTHESIA: Retrobulbar block. ANESTHESIOLOGIST: Francisco Coley MD OPERATIVE PROCEDURE: Following satisfactory intravenous sedation, the patient received local anesthesia using a 50/50 mixture of lidocaine 2% and Marcaine 0.75%. A Van Lint lid block was delivered to the left eye using 4 mL of the mixture in a retrobulbar injection only using 1 mL of the mixture due to excessive orbital or subcutaneous fat. It was unable to access the space effectively. Therefore, the patient was prepped and draped in the usual sterile fashion so as to expose only the left eye. Ophthalmic Betadine was instilled into the inferior fornix, and the lashes were taped out of the surgical field. An eyelid speculum was placed into the left eye. Viscous lidocaine gel was placed on the eye, and a paracentesis was made in inferior clear cornea at the limbus. Nonpreserved lidocaine, 0.6 mL, at 0.5% was injected into the anterior chamber. Viscoelastic material was then instilled into the anterior chamber via the paracentesis. A 2.4-mm keratome was then used to create the main incision in temporal clear cornea at the limbus. A continuous curvilinear capsulorrhexis was performed using a cystotome and Utrata forceps. Hydrodissection of the lens cortex was performed using BSS on a cannula until the nucleus was noted to be freely rotating. The phacoemulsification tip was inserted via the main wound and used to sculpt 2 perpendicular grooves into the lens nucleus. The nucleus was cracked into 4 quadrants. Each quadrant was lifted out of the capsule and individually phacoemulcified. The remaining cortical material was then aspirated using irrigation and aspiration port. The capsular bag was inflated using Provisc and a preloaded AcrySof lens, model [id number] power +22.0 diopter was injected into the capsular bag and centered using a Sinskey hook. The residual viscoelastic material was removed from the anterior chamber using irrigation and aspiration. The wound edges were hydrated using BSS. The wound was tested for leakage. It was found to be watertight. Therefore, TobraDex ointment was placed in the eye, and the speculum was removed from the eye, and the eyelid was closed with sterile dressing and shield was placed over the eye. The patient was transferred to the recovery room in stable condition, told to follow up in 1 day. KIMBERLY CLEANING M.D. [id number]
[2017-08-30 11:05] VITALS: BP 150/86; PULSE 88
[2017-08-30 11:10] VITALS: TEMP 97.9
[2017-08-30] MEDS ORDERED: FLURBIPROFEN 0.03% OPHTH SOLN 2.5 ML BOTTLE OP SCH (17:15)
== END 2017-08-30 11:00 | disposition home or self-care (01) ==
LOC: JASU-SURG 06:15
PROVIDERS: ATTEND Ophthalmology
PROC: 08RK3JZ Replacement of Left Lens with Synthetic Substitute, Percutaneous Approach (ICD-10-PCS; principal; 2017-08-30 07:30)
DX: H25.12 Age-related nuclear cataract, left eye (principal); E11.9 Type 2 diabetes mellitus without complications; I10 Essential (primary) hypertension
CPT/HCPCS: 36415; 82947; 82962